=== PATIENT | female | born 1935 | race Caucasian/White ===

== ENCOUNTER 2020-08-02 11:56 | Inpatient (IN) | payer MEDICARE, OTHER, SELFPAY ==
[2020-08-02] VITALS (10 sets, daily range): BP systolic 117–152; BP diastolic 55–78; PULSE 70–88; RESP 17–24; TEMP 36.3–36.9; O2SAT 90–96
--- NOTE | 2020-08-02 | DI.US_ITS ---
APPROVED REPORT EXAM: Comprehensive 2D, Doppler, and color-flow Echocardiogram Patient Location: ER Room/Bed: 1 Intelligence Senior Sergeant: Amelia Ham RDCS (AE) Indications: CHF, SOB, Edema Other Information Study Quality: Adequate. Technically limited study due to inability to position patient exam done sup ine bedside.. Conclusion Left Ventricle : The left ventricle is normal size. Left ventricular systolic function is mild to mod erately decreased. There is normal left ventricular wall thickness. There is global hypokinesis of th e left ventricle. LVEF is 44%. Right Ventricle : Right ventricle is moderately dilated. Right ventricle is mildly hypokinetic. The R VSP is 56.3mmHg. Atria : Left atrium is mildly dilated. Right atrium is severely dilated. Mitral Valve : Moderate mitral annular calcification. No evidence of mitral valve stenosis. Mild mitr al regurgitation. Tricuspid Valve : Tricuspid valve is grossly normal in structure and function. Tricuspid annulus is d ilated. Moderate to severe tricuspid regurgitation. There is no tricuspid valve stenosis. Great Vessels : The aortic root is normal in size. The ascending aorta is mildly dilated. Aortic arch is normal in caliber. Please see remainder of study for further details. Wall motion Left Ventricle The left ventricle is normal size. Left ventricular systolic function is mild to moderately decreased . There is normal left ventricular wall thickness. There is global hypokinesis of the left ventricle. The left ventricular diastolic function is normal. There is no ventricular septal defect visualized. LVEF is 44%. Right Ventricle Right ventricle is moderately dilated. Right ventricle is mildly hypokinetic. The RVSP is 56.3mmHg. Atria Left atrium is mildly dilated. Right atrium is severely dilated. The interatrial septum is intact wit h no evidence for an atrial septal defect. Aortic Valve The aortic valve is normal in structure. Aortic valve is trileaflet. There is no aortic valvular sten osis. Mild aortic regurgitation. Mitral Valve Moderate mitral annular calcification. No evidence of mitral valve stenosis. Mild mitral regurgitatio n. Tricuspid Valve Tricuspid valve is grossly normal in structure and function. Tricuspid annulus is dilated. There is n o tricuspid valve stenosis. Moderate to severe tricuspid regurgitation. Pulmonic Valve The pulmonary valve is normal in structure. There is no pulmonic valvular stenosis. Trace to mild pul crystal regurgitation. Great Vessels The aortic root is normal in size. The ascending aorta is mildly dilated. Aortic arch is normal in ca liber. The IVC collapses <50% with inspiration. Pericardium There is no pericardial effusion. 2D Dimensions IVSD d PLAX 0.86 cm F: 0.6-1.0 LV Vol A2C d MOD 73.9 mL LVPW d PLAX 0.86 cm F: 0.6 - 1.0 LV Vol A4C d MOD 84.3 mL LVID d PLAX 4.61 cm F: 3.8 - 5.2 LA vol/ BSA A2C s A-L 35.8 mL/m2 LVDs 3.60 cm F: 2.2 - 3.5 LA vol/ BSA A4C s A-L 53.0 mL/m2 Ao Root d 3.29 cm F: 2.7 - 3.3 LA Vol/ BSA Biplane s A-L 43.7 mL/m2 RA Area A4C 34.51 cm2 LA Area A4C s MOD 26.67 cm2 RA Vol/ BSA A4C s A-L 77.0 mL/m2 LA Area A2C s MOD 21.82 cm2 Ao Asc Diam d 3.28 cm F: 2.3 - 3.1 LV EF A4C MOD 44.1 % LV EF Teichholz 44.0 % LV EF A2C MOD 43.3 % LVEF ([place]'s) 40.63 % F: 54 - 74 LV EF Biplane MOD 40.6 % LV Volume 61.82 mL F: 46 - 106 SV 32.02 mL LV Volume Index 35.12 mL/m2 F: 29 - 61 SV Index 18.21 mL/m2 LV Vol Biplane MOD 78.8 mL FS 21.65 % M-Mode TAPSE 2.12 cm (M/F) >1.7 LV Diastology MV E' medial 0.105 (>0.07 m/s) E/A Ratio 3.5 LV E/e MED 8.30 (<14) MV E Vmax 0.88 (0.4-1.3 m/s) MV E' lateral 0.111 (>0.1 m/s) MV A Vmax 0.25 (0.4-1.3 m/s) LV E/e LAT 7.85 (<14) MV E/A Ratio 3.18 MV E/E' medial 8.34 MV E/E' lateral 7.88 Aortic Valve LVOT Area 3.19 cm2 AoV Area Vmax 2.34 cm2 LVOT Vmax 0.97 m/s AoV Area/ BSA (Vmax) 1.33 cm2/m2 LVOT Mean Jose Roberto. 0.58 m/s FRANK Mean Jose Roberto. 2.05 cm2 LVOT Peak Grad 3.8 mmHg FRANK Mean Jose Roberto. Index 1.17 cm2/m2 LVOT Mean Grad 1.7 mmHg AR DT 1499 msec LVOT VTI 0.196 m AR PHT 435 msec LVOT Diam s 2.00 cm AoV Vmax 1.33 m/s Velocity Ratio 0.72 AoV Mean Jose Roberto. 0.91 m/s AoV Peak Grad 7.1 mmHg LVOT SV 62.61 mL AoV Mean Grad 3.8 mmHg AoV VTI 0.274 m AoV Area VTI 2.29 cm2 AoV Area/ BSA (VTI) 1.30 cm/m2 Mitral Valve MV DT 133 (160-240 msec) MV PHT 38 msec MV Area PHT 5.72 cm2 MV VTI 0.210 m MV Area VTI 2.98 (4.0-6.0 cm2) Pulmonary Valve PV Vmax 0.83 (0.5-1.5 m/s) RVOT Peak Gr. 1.13 mmHg PV Peak Grad 2.7 mmHg RVOT Mean Gr. 0.45 mmHg PV Mean Grad 1.1 mmHg RVOT VTI 0.103 m PV VTI 0.123 m RVOT Vmax 0.53 m/s Tricuspid Valve TR Peak Grad 48.3 mmHg TR Vmax 3.48 m/s RA Pressure 8.00 mmHg RVSP (TR) 56.3 mmHg
--- NOTE | 2020-08-02 12:00 | RT.EKG_ITS ---
APPROVED REPORT Exam: Resting ECG Reason for Exam: weakness Patient Location: E HR:84 bpm ECG Measurements Heart Rate 84 AXIS DE [id number] P [id number] QRSd 97 QRS 83 QT 388 T 46 QTc 460 Conclusion Atrial flutter with predominant 4:1 AV block...A-rate 333, multiple Ps Borderline ST depression, anterolateral leads...ST <-0.07mV, I aVL V2-V6 afib with no obvious ishcemic findings
--- NOTE | 2020-08-02 12:15 | DI.RAD_ITS ---
Exam(s) XR PORTABLE CHEST AP EXAM: XR PORTABLE CHEST AP CLINICAL HISTORY: weakness, recent pneumonia TECHNIQUE: 2D digital imaging was performed. COMPARISON: No exams were available for comparison FINDINGS: There is a moderate-sized right pleural effusion. There underlying fibrotic changes. There is vascu lar prominence and increased interstitial markings suspicious for CHF. The cardiac silhouette is par tially obscured. IMPRESSION: Right pleural effusion and probable CHF. Pneumonia cannot be excluded. DATA REPOSITORY: RADIATION DOSE DELIVERED:
--- NOTE | 2020-08-02 12:31 | ED.GENADUL_ITS ---
Discharge Plan Disposition Patient Disposition: [facility] INPATIENT Condition: Stable Discharge Details Chief Complaint: GenMedical Clinical Impression: Hypoxia, Pulmonary edema, Pneumonia Primary Care Provider: Unknown,Unknown ED Provider: Juan Milligan [place] Meds and New Rx's Prescriptions: No Action doxycycline hyclate [Doxy-Caps] 100 mg Capsule 100 mg PO BID RF: 0 metoprolol succinate 50 mg Tablet Extended Release 24 Hr 50 mg PO DAILY RF: 0 Metamucil Packet 1 packet PO BID RF: 0 aspirin [Aspir-Low] 81 mg Tablet,Delayed Release (Dr/Ec) 81 mg PO DAILY RF: 0 acetaminophen 500 mg Tablet 500 mg PO TID PRN PRNRF: 0 diltiazem HCl [DILT-CD] 120 mg Capsule,Extended Release 24hr 120 mg PO DAILY RF: 0 furosemide 20 mg Tablet 20 mg PO DAILY RF: 0 levothyroxine 112 mcg Tablet 112 mcg PO DAILY RF: 0 oxycodone 5 mg Tablet 5 mg PO BID PRNRF: 0 lactulose 10 gram/15 mL Solution 10 g PO BID PRN PRNRF: 0 Eliquis 2.5 mg Tablet 2.5 mg PO BID RF: 0 Medical Decision Making 84 yo female with hx of afib on eliquis, otherwise unclear prior pmhx though denies any history of OK, comes in with family with worsening general fatigue and dyspnea. She apparently had a fall last and lives with her daughter in the [place] area and went to their hospital. She was admitted and discharged Saturday and had a diagnosis of pneumonia on her discharge paperwork which the daughter states she was not made aware of and upset her. She has had gradually worsening dyspnea and general fatigue so her family brought her here for an evaluation. No fevers on history and no chest pain. She is noted to be hypoxic to 90% on room air with tachypnea and decreased breath sounds at the bases. She and her daughter confirm she is dnr/dni. Bedside u/s does show b lines in both lungs bilaterally so suspect partially this is due to chf, will administer lasix, and evaluate for ischemia with troponin and anemia. She is on eliquis and no evidence of dvt on exam so doubt PE. Will try to get records from [place] as well. records obtained from [place] and they note she has afib on eliquis, chf, tricupsid regurgitation, prior tia, polycyhtmeia, DMt2, htn, hypothyroidism, depression and was seen in their ED on day of admission for a mechanicall fall while getting dressed resulting in t12 and L1 compression fractures. She was treated as well for a pneumonia on her xray and discharged on doxycycline. Her xray here shows right pleural effusion and chf and possible pneumonia, her wbc here is 12 and on their labs was normal. Will obtain blood cultures and likely start iv antibiotics patient has sodium of 127 and was 130 at [facility], bilirubin mildly elevated but was over 2 while at [facility] and had unremarkable abdomen ultrasound and has no pain on exam and also had negative hepatitis panel. She is sleeping but awakens to voice and after having tylenol and being placed on o2 states she feels better. Will admit to the hospitalist for chf with possible worsening pneumonia in patient already on doxycycline and requiring oxygen. PAtient and daughter in agreement Differential Diagnosis Differential Diagnosis: pneumonia, chf, uti Imaging Data Radiologic Study: Attestation: I personally reviewed and interpreted this imaging study as follows: Imaging: X-Ray Radiologist's impression: IMPRESSION: Right pleural effusion and probable CHF.? Pneumonia cannot be excluded. Lab Data Lab results reviewed: Yes I reviewed the patient's lab results. ECG Data Attestation: I personally reviewed and interpreted this ECG (s) as follows: Prior ECG tracings: not available for review Interpretation: afib rate of 84, qtc [address] t wave ischemic findings though has some motion artifact HPI General Mode of arrival: wheelchair . Date/Time Provider Initiated Documentation: 08/02/20 11:57 . Limitations to Documentation: no limitations . Information obtained by: patient . History of Present Illness 84 year old F presents to the emergency department with the chief complaint of general weakness, described as moderate, Patient reports no radiation. Patient started experiencing this day(s) (3) and it has been constant. No relieving factors improve symptom(s), No exacerbating factors reported . Related Data Home Medications Medication Instructions Recorded Confirmed acetaminophen 500 mg PO TID PRN PRN 08/02/20 08/02/20 apixaban [Eliquis] 2.5 mg PO BID 08/02/20 08/02/20 aspirin [Aspir-Low] 81 mg PO DAILY 08/02/20 08/02/20 diltiazem HCl [DILT-CD] 120 mg PO DAILY 08/02/20 08/02/20 doxycycline hyclate [Doxy-Caps] 100 mg PO BID 08/02/20 08/02/20 furosemide 20 mg PO DAILY 08/02/20 08/02/20 lactulose 10 g PO BID PRN PRN 08/02/20 08/02/20 levothyroxine 112 mcg PO DAILY 08/02/20 08/02/20 metoprolol succinate 50 mg PO DAILY 08/02/20 08/02/20 oxycodone 5 mg PO BID PRN 08/02/20 08/02/20 psyllium [Metamucil] 1 packet PO BID 08/02/20 08/02/20 Allergies Allergy/AdvReac Type Severity Reaction Status Date / Time No Known Allergies Allergy Unverified 08/02/20 12:13 General Stated Complaint: GenMedical HAZEL: 2 Review of Systems All systems reviewed & are unremarkable except as noted in HPI and below Constitutional Constitutional: Denies chills and Denies fever(s) Cardiovascular Cardiovascular: Denies chest pain Respiratory Respiratory: Denies cough Gastrointestinal Gastrointestinal: Denies abdominal pain, Denies nausea and Denies vomiting Musculoskeletal Musculoskeletal: Denies joint swelling PFSH Social History Smoking/Tobacco Use Status: Former Tobacco Use Smoking risk assessment performed?: Yes Alcohol Intake: never Drug use: Never Exam Const General: no acute distress Orientation: alert [facility] Head: normal to inspection Ears: external ears normal General nose exam: external nose normal Mouth: moist mucous membranes Eyes General: appearance normal, both eyes and all related structures Neck Neck: normal visual inspection Resp Effort & Inspection: no grunting Cardio Rate: regular rate Skin General skin exam: no rashes or lesions noted Neuro General: patient alert and patient oriented x3 Extrem General: normal to inspection Psych Mental Status: mental status grossly normal Course Vital Signs Vital signs: Vital Signs Temperature 36.9 C 08/02/20 12:08 Pulse 85 08/02/20 12:08 Respiratory Rate 24 08/02/20 12:08 Blood Pressure 152/78 H 08/02/20 12:08 Pulse Oximetry 90 L 08/02/20 12:08 Temperature 36.9 C 08/02/20 12:08 Temperature Source Oral 08/02/20 12:08 Pulse 85 08/02/20 12:08 Respiratory Rate 17 08/02/20 12:21 Respiratory Effort 08/02/20 12:21 Blood Pressure 152/78 H 08/02/20 12:08 Blood Pressure Position Supine 08/02/20 12:08 Pulse Oximetry 94 08/02/20 12:23 Oxygen Delivery Method Nasal Cannula 08/02/20 12:23 Oxygen Flow Rate 2 08/02/20 12:23
[2020-08-02 12:51] LABS: BE (Venous) -3 mmol/L (-2-3); HCO3 (Venous) 23 mmol/L (23-28); O2 Sat (Venous) 81 %; TCO2 (Venous) 20 mmol/L (24-29); pCO2 (Venous) 41 mmHg (41-51); pH (Venous) 7.35 (7.31-7.41); pO2 (Venous) 29 mmHg
[2020-08-02 12:55] LABS: Abs Immature Grans 0.11 10^3/uL (0.0-0.06); Absolute Basophil Count 0.05 10^3/uL (0.0-0.2); Absolute Eosinophil Count 0.01 10^3/uL (0.0-0.7); Absolute Lymphocyte Count 0.62 10^3/uL (1.2-3.4); Absolute Monocyte Count 0.59 10^3/uL (0.1-0.8); Absolute Neutrophil Count 11.07 10^3/uL (1.2-6.7); Basophils % 0.4; Eosinophils % 0.1; HCT 50.4 % (36.0-46.0); HGB 17.1 g/dL (11.2-15.7); Immature Grans % 0.9; MCH 31.4 pg (27.0-33.0); MCHC 33.9 % (32.0-36.0); MCV 92.5 fL (80-95); MPV 10.2 fL (8.0-11.0); Monocytes % 4.7; Neutrophils % 88.9; Nucleated RBC 0 %; Platelet Count 158 10^3/uL (130-400); RBC 5.45 10^6/uL (3.93-5.22); RDW 15.8 % (11.7-14.6); RDW-SD 52.5 fL; WBC 12.45 10^3/uL (4.4-10.8)
[2020-08-02 12:56] LABS: Bilirubin Small (Negative); Blood Negative (Negative); Clarity Sl Cloudy (Clear); Glucose Negative (Negative); Ketones 15 mg/dL (Negative); Leukocyte Esterase Negative (Negative); Nitrite Negative (Negative); Specific Gravity 1.025 (1.005-1.025); Urobilinogen 0.2 EU/dL (Up TO 0.2)
[2020-08-02] MEDS: Furosemide 40 MG/4 ML VIAL IVP (12:58)
[2020-08-02] MEDS: Acetaminophen 500 MG TAB 1000 MG PO (12:58)
[2020-08-02 13:07] LABS: INR 1.3 (0.9-1.1); PTT Activated 27.4 sec (21.0-27.5); Prothrombin Time 13.4 sec (9.3-11.0)
[2020-08-02 13:08] LABS: Bacteria Few HPF (Negative); Crystals Negative HPF (Negative); Epithelial Cells Rare HPF (Negative); Mucus Moderate (Negative); Other Cells Few Renal (Negative)
[2020-08-02 13:10] LABS: C & S Indicated? Yes; Casts 3-5 Coarse Granular LPF (Negative)
[2020-08-02 13:13] LABS: ALT 33 U/L (14-59); AST 20 U/L (15-37); Albumin 2.7 g/dL (3.4-5.0); Alkaline Phosphatase 182 U/L (46-116); Anion Gap 11.1 mmol/L (3-11); BUN 32 mg/dL (7-18); Bilirubin, Direct 0.5 mg/dL (0.0-0.2); Bilirubin, Total 1.4 mg/dL (0.2-1.0); CO2 22.9 mmol/L (21.0-32.0); CREATININE 0.8 mg/dL (0.55-1.02); Calcium 8.9 mg/dL (8.5-10.1); Chloride 93 mmol/L (98-107); Glucose 216 mg/dL (74-106); Magnesium 1.5 mg/dL (1.8-2.4); NT-proBNP 10176 pg/mL (<300); Potassium 5.4 mmol/L (3.5-5.1); Sodium 127 mmol/L (136-145); Total Protein 7.4 g/dL (6.4-8.2)
[2020-08-02 13:20] LABS: Troponin I < 0.05 ng/mL (<0.06)
[2020-08-02 13:23] LABS: Source Nasal/Nares
--- NOTE | 2020-08-02 13:48 | NUR.NOTE ---
Nursing Note: DAUGHTER [phone]
--- NOTE | 2020-08-02 13:48 | W.PM.HP.N ---
Date of service: 08/02/20 Time of Service: 13:48 Assessment and Plan Assessment and plan (1) Pulmonary edema: Status: Acute Assessment and plan: admit to med/surg monitor I&O and daily weights closely continue lasix daily echo pending. oxygen to keep sats above 92 trend troponin last echo September 29, 2018 at [facility]: EF 50% with anteroseptal wall base to mid severely hypokinetic, inferoseptal wall base to mid is severely hypokinetic , mildly dilated RV, RV function is preserved with apical hypokinesis. The interventricular septum in flattened consistent with RV pressure overload. both atria moderately dilated, NO , mild to moderate AI, moderate TR evidence of moderate pulmonary HTN PA pressures 47.92, pericardium normal, left pleural effusion present. (2) Diabetes mellitus type 2 in obese: Status: Acute Assessment and plan: diabetic diet sliding scale coverage as needed. HA1C 6.1 in Oct 2019 home med list: glipizide 10 mg po daily which was placed on hold on discharge d/t elevated tbili. (3) Pneumonia: Status: Acute Assessment and plan: recently treated for and discharged on doxycycline. blood cultures pending received zosyn in the ED will add procalcitonin (4) Atrial fibrillation: Status: Chronic Assessment and plan: rate controlled on cardizem anticoagulated on apixaban continue home medications (5) Compression fracture: Status: Acute Assessment and plan: continue pain management, scheduled apap, lidocaine patch, prn oxycodone PT/OT consult LS spine xrary from [facility]: stable grade 1 superior endplate compression of L1, grade 2 biconcave compression deformity of T12 in indeterminate age, progressive spondylosis of L5-S1. mild broad based lumbar dextrorotocurature, stable. (6) Hypothyroidism: Status: Chronic Assessment and plan: continue synthyroid. TSH on 07/22/2020 2.89 (7) Elevated LFTs: Status: Acute Assessment and plan: work up at [facility] included: hepatitis panel: negative Tbil 1.7, dbil 0.8, alp 148, alt 33, ast 26 ggt 143, tp 6 alb 3.0 INR 1.3 ultrasound of RUQ: liver appears hypoechoic. no focal intrahepatic mass or intrahepatic bilary dilatation noted. The appearance could be on basis of hepatitis. common duct measure 5 mm, WNL, gallbladder free of stone or wall thickening. probably mild sludge present, seen on previous CT scan 2018, pancreas is satisfactorily imaged and appears unremarkable. right kidney grossed free of hydro, no free fluid noted right UQ. they stopped her asa, glypizide and possible connection to bactrim? (8) DVT prophylaxis: Status: Acute Assessment and plan: fully anticoagulated on apixaban (9) Discharge planning issues: Status: Acute Assessment and plan: case management following anticipate swing level discharge discussed with Dr Flowers History of Present Illness History of Present Illness Chief Complaint: shortness of breath Narrative: discharged over the weekend from [facility], had fallen at home and suffered compression fractures, also found to have a pneumonia, discharged home on doxycycline. has had increased SOB and decreased abililty to manage at home accordingly. daughter brought her here for evaluation. work up in the ED concerning for CHF with BNP over 10k, b-lines on PoCUS exam. she received IV lasix and bed request to admit to med/surg for further management. Review of Systems All systems reviewed & are unremarkable except as noted in HPI and below Cardiovascular Cardiovascular: Reports dyspnea and Reports dyspnea on exertion Respiratory Respiratory: Reports dyspnea and Reports dyspnea on exertion PFSH Social History Smoking/Tobacco Use Status: Former Tobacco Use Smoking risk assessment performed?: Yes Alcohol Intake: never Drug use: Never Meds Allergies and Home Medications Allergies Allergy/AdvReac Type Severity Reaction Status Date / Time No Known Allergies Allergy Unverified 08/02/20 12:13 Home Medications Medication Instructions Recorded Confirmed Type acetaminophen 500 mg PO TID PRN PRN 08/02/20 08/02/20 History apixaban [Eliquis] 2.5 mg PO BID 08/02/20 08/02/20 History aspirin [Aspir-Low] 81 mg PO DAILY 08/02/20 08/02/20 History diltiazem HCl [DILT-CD] 120 mg PO DAILY 08/02/20 08/02/20 History doxycycline hyclate [Doxy-Caps] 100 mg PO BID 08/02/20 08/02/20 History furosemide 20 mg PO DAILY 08/02/20 08/02/20 History lactulose 10 g PO BID PRN PRN 08/02/20 08/02/20 History levothyroxine 112 mcg PO DAILY 08/02/20 08/02/20 History metoprolol succinate 50 mg PO DAILY 08/02/20 08/02/20 History oxycodone 5 mg PO BID PRN 08/02/20 08/02/20 History psyllium [Metamucil] 1 packet PO BID 08/02/20 08/02/20 History Exam Const General: no acute distress, frail appearing and ill appearing acutely Nutritional Appearance: average body habitus Orientation: alert, awake and oriented x3 HENMT Head: normal to inspection Ears: external ears normal General nose exam: external nose normal Mouth: moist mucous membranes Eyes General: appearance normal, both eyes and all related structures Neck Neck: normal visual inspection Resp Effort & Inspection: no grunting Cardio Rate: regular rate Skin General skin exam: no rashes or lesions noted Neuro General: patient alert and patient oriented x3 Extrem General: normal to inspection Psych Mental Status: mental status grossly normal Results Labs Result diagrams: 08/02/20 12:06 08/02/20 12:43 Labs: Laboratory Results - last 24 hr 08/02/20 08/02/20 08/02/20 12:06 12:06 12:06 WBC 12.45 H RBC 5.45 H Hgb 17.1 H Hct 50.4 H MCV 92.5 MCH 31.4 MCHC 33.9 RDW 15.8 H Plt Count 158 MPV 10.2 Immature Gran % 0.9 Neutrophils % 88.9 Lymphocytes % 5.0 Monocytes % 4.7 Eosinophils % 0.1 Basophils % 0.4 Nucleated RBC % 0 Absolute Neutrophils 11.07 H Absolute Lymphocytes 0.62 L Absolute Monocytes 0.59 Absolute Eosinophils 0.01 Absolute Basophils 0.05 PT 13.4 H INR 1.3 H APTT 27.4 VBG pH VBG pCO2 VBG pO2 VBG HCO3 VBG Total CO2 VBG O2 Saturation VBG Base Excess Sodium Potassium Chloride Carbon Dioxide Anion Gap BUN Creatinine Estimated GFR/1.73 m2 Glucose Calcium Magnesium Cancelled Total Bilirubin Conjugated Bilirubin AST ALT Alkaline Phosphatase Troponin I NT-Pro-B Natriuret Pep Total Protein Albumin Urine Color Urine Clarity Urine pH Ur Specific [place] Urine Protein Urine Ketones Urine Blood Urine Nitrite Urine Bilirubin Urine Urobilinogen Ur Leukocyte Esterase Urine RBC Urine WBC Ur Epithelial Cells Urine Crystals Urine Bacteria Urine Casts Urine Mucus Urine Other Ur Culture Indicated? Urine Glucose COVID-19 Source 08/02/20 08/02/20 08/02/20 12:38 12:43 12:43 WBC RBC Hgb Hct MCV MCH MCHC RDW Plt Count MPV Immature Gran % Neutrophils % Lymphocytes % Monocytes % Eosinophils % Basophils % Nucleated RBC % Absolute Neutrophils Absolute Lymphocytes Absolute Monocytes Absolute Eosinophils Absolute Basophils PT INR APTT VBG pH 7.35 VBG pCO2 41 VBG pO2 29 VBG HCO3 23 VBG Total CO2 20 L VBG O2 Saturation 81 VBG Base Excess -3 L Sodium 127 L Potassium 5.4 H Chloride 93 L Carbon Dioxide 22.9 Anion Gap 11.1 H BUN 32 H Creatinine 0.8 Estimated GFR/1.73 m2 >= 60.00 Glucose 216 H Calcium 8.9 Magnesium 1.5 L Total Bilirubin 1.4 H Conjugated Bilirubin 0.5 H AST 20 ALT 33 Alkaline Phosphatase 182 H Troponin I Cancelled < 0.05 NT-Pro-B Natriuret Pep Cancelled 09508 H Total Protein 7.4 Albumin 2.7 L Urine Color Urine Clarity Urine pH Ur Specific [place] Urine Protein Urine Ketones Urine Blood Urine Nitrite Urine Bilirubin Urine Urobilinogen Ur Leukocyte Esterase Urine RBC Urine WBC Ur Epithelial Cells Urine Crystals Urine Bacteria Urine Casts Urine Mucus Urine Other Ur Culture Indicated? Urine Glucose COVID-19 Source 08/02/20 08/02/20 12:45 13:14 WBC RBC Hgb Hct MCV MCH MCHC RDW Plt Count MPV Immature Gran % Neutrophils % Lymphocytes % Monocytes % Eosinophils % Basophils % Nucleated RBC % Absolute Neutrophils Absolute Lymphocytes Absolute Monocytes Absolute Eosinophils Absolute Basophils PT INR APTT VBG pH VBG pCO2 VBG pO2 VBG HCO3 VBG Total CO2 VBG O2 Saturation VBG Base Excess Sodium Potassium Chloride Carbon Dioxide Anion Gap BUN Creatinine Estimated GFR/1.73 m2 Glucose Calcium Magnesium Total Bilirubin Conjugated Bilirubin AST ALT Alkaline Phosphatase Troponin I NT-Pro-B Natriuret Pep Total Protein Albumin Urine Color Dark yellow Urine Clarity Sl cloudy Urine pH 6.0 Ur Specific [place] 1.025 Urine Protein 100 H Urine Ketones 15 H Urine Blood Negative Urine Nitrite Negative Urine Bilirubin Small H Urine Urobilinogen 0.2 Ur Leukocyte Esterase Negative Urine RBC 3-5 H Urine WBC 3-5 Ur Epithelial Cells Rare Urine Crystals Negative Urine Bacteria Few Urine Casts 3-5 coarse granular Urine Mucus Moderate Urine Other Few renal Ur Culture Indicated? Yes Urine Glucose Negative COVID-19 Source Nasal/nares Last Vital Signs Temp 36.9 C 08/02/20 12:08 Pulse 84 08/02/20 13:33 Resp 21 08/02/20 13:33 BP 142/74 H 08/02/20 13:33 Pulse Ox 96 08/02/20 13:33
[2020-08-02] MEDS: MAGNESIUM SULFATE 2 GM/50 ML BAG IVPB (13:49)
[2020-08-02] MEDS: PIPERACILLIN/TAZO 4.5 GM in Normal Saline 100 ML IVPB (14:03)
[2020-08-02 14:44] LABS: Procalcitonin 0.4 ng/mL
[2020-08-02 15:03] LABS: COVID-19 PCR Negative (Negative)
[2020-08-02] MEDS: Furosemide 20 MG/2 ML VIAL IVP (16:23)
[2020-08-02] MEDS: Normal Saline Flush 10 ML SYR IVP (16:24)
[2020-08-02] MEDS: Ketorolac 15 MG/ML VIAL IVP (16:24)
[2020-08-02 16:38] LABS: Troponin I < 0.05 ng/mL (<0.06)
--- NOTE | 2020-08-02 17:13 | PT.INTREAT ---
Date of service: 08/02/20 Time of Service: 17:13 PT Notes Visit Reasons: Congestive heart failure Attempted PT evaluation twice but patient adamantly refused stating that she has been in a lot of pain and she only would like to continue to rest/sleep. Feels very relaxed and sleepy. Nurse Sherice states that patient has received Toradol earlier this afternoon uponf arrival to the unit. Will plan on approaching patient again tomorrow morning, as ordered. Thank you for the opportunity to participate in the care of this patient. Fabby Neff PT, DPT, CLT [facility] [place], [place]
[2020-08-02] MEDS: Acetaminophen 500 MG TAB PO (19:57)
[2020-08-02] MEDS: Apixaban 2.5 MG TAB PO (19:59)
[2020-08-02] MEDS: Doxycycline Hyclate 100 MG CAP PO (19:59)
[2020-08-02] MEDS: Psyllium PKT 1 EACH PO (19:59)
[2020-08-02] MEDS: Lidocaine 5% Patch 1 PATCH TP (20:01)
[2020-08-02 21:23] LABS: Troponin I < 0.05 ng/mL (<0.06)
[2020-08-03] MEDS: Levothyroxine 112 MCG TAB PO (05:19)
[2020-08-03] MEDS: Normal Saline Flush 10 ML SYR IVP ×5 (06:52→16:15)
[2020-08-03] MEDS: Ketorolac 15 MG/ML VIAL IVP ×3 (06:52→20:59)
[2020-08-03 07:08] LABS: Abs Immature Grans 0.11 10^3/uL (0.0-0.06); Absolute Basophil Count 0.05 10^3/uL (0.0-0.2); Absolute Eosinophil Count 0.05 10^3/uL (0.0-0.7); Absolute Lymphocyte Count 0.62 10^3/uL (1.2-3.4); Absolute Monocyte Count 0.62 10^3/uL (0.1-0.8); Absolute Neutrophil Count 7.95 10^3/uL (1.2-6.7); Basophils % 0.5; Eosinophils % 0.5; HCT 48.7 % (36.0-46.0); HGB 16.7 g/dL (11.2-15.7); Immature Grans % 1.2; Lymphocytes % 6.6; MCH 31.3 pg (27.0-33.0); MCHC 34.3 % (32.0-36.0); MCV 91.4 fL (80-95); Monocytes % 6.6; Neutrophils % 84.6; Nucleated RBC 0 %; Platelet Count 136 10^3/uL (130-400); RBC 5.33 10^6/uL (3.93-5.22); RDW 15.5 % (11.7-14.6); RDW-SD 50.9 fL
[2020-08-03 07:23] LABS: Anion Gap 7.9 mmol/L (3-11); BUN 32 mg/dL (7-18); CO2 26.1 mmol/L (21.0-32.0); CREATININE 0.8 mg/dL (0.55-1.02); Chloride 95 mmol/L (98-107); Glucose 152 mg/dL (74-106); Potassium 3.8 mmol/L (3.5-5.1); Sodium 129 mmol/L (136-145)
[2020-08-03 07:28] LABS: Troponin I < 0.05 ng/mL (<0.06)
[2020-08-03 07:36] VITALS: BP 132/79; PULSE 92; RESP 19; TEMP 36.6; O2SAT 95
[2020-08-03] MEDS: Apixaban 2.5 MG TAB PO ×2 (08:03→20:29)
[2020-08-03] MEDS: Aspirin E.C. 81 MG TABEC PO (08:03)
[2020-08-03] MEDS: Lidocaine Patch Removal 1 EACH TD (08:03)
[2020-08-03] MEDS: Acetaminophen 500 MG TAB PO ×3 (08:03→20:28)
[2020-08-03] MEDS: Doxycycline Hyclate 100 MG CAP PO ×2 (08:04→20:28)
[2020-08-03] MEDS: Furosemide 20 MG TAB PO (08:04)
[2020-08-03] MEDS: Insulin Aspart 300 UNITS/3 ML PEN SC (08:04)
[2020-08-03] MEDS: Metoprolol CR 50 MG TABCR PO (08:04)
[2020-08-03] MEDS: dilTIAZem CD 120 MG CAPCR PO (08:04)
[2020-08-03] MEDS: Lactulose 20 GM/30 ML CUP 10 GM PO (08:32)
[2020-08-03] MEDS: Docusate Sodium 100 MG CAP PO ×2 (09:57→20:28)
[2020-08-03] MEDS: Polyethylene Glycol 3350 17 GM PACKET PO (09:57)
--- NOTE | 2020-08-03 10:25 | IN_ITS ---
PT Notes Visit Reasons: Congestive heart failure Physical Therapy Inpatient Initial Evaluation Date: 08/03/2020 Referring Doctor: Shante Mojica NP PT Orders: PT CONSULT: Eval/treat. Precautions: Fall. Standard. Activity as tolerated. Back brace on when out of bed, may put brace in supine or seated. Patient Profile/Admitting Diagnosis: Carlos is an 84-year-old female who presented to the ED on 08/02/2020 due to worsening general fatigue and dyspnea with a fall last . She is diagnosed with pulmonary edema, diabetes mellitus, pneumonia, atrial fibrillation, elevated LFTs, and stable grade 1 superior endplate L1 compression fracture and grade 2 biconcave compression deformity of T12 as well as progressive spondylosis of L5-S1. PMHX: Hypothyroidism Diabetes mellitus type 2 Atrial fibrillation Social History/Home Situation: Lives with a daughter in a private home with 4 steps to enter with rails on B sides. She was independent with meal preparation, all mobility and self-care tasks prior to hospital admission. Daughter drove her to all her medical appointments. Equipment Owned/DME: FWW, Subjective: Patient finally agreed to putting the back brace on while in bed as she was too afraid to get out of bed. After extensive reassurance that she will be okay and will not fall, she okayed transferring from bedside to chair with assist of PT and ERIKA Clark as well as with stand by assist of ERIKA Martinez and student ERIKA for safety. Patient appeared to be significantly fearful of falling and needed much encouragement to participate in mobility assessment. Objective: General Observation: IV in R UE. Avina catheter in place. Abdominal area appears full and rounded. Mental Status: Alert and oriented as to person, place, time, and purpose. Able to pay attention, focus, and respond appropriately. Fearful of falling. Pain: At least 8/10 back pain ROM: Right Upper Extremity: Shoulder Flexion WFL. Shoulder abduction WFL. Shoulder ER/IR WFL. Elbow flexion WFL. Forearm pronation/supination WFL. Wrist flexion WFL. Opening and closing of hand WFL. Left Upper Extremity: Shoulder Flexion WFL. Shoulder abduction WFL. Shoulder ER/IR WFL. Elbow flexion WFL. Forearm pronation/supination WFL. Wrist flexion WFL. Opening and closing of hand WFL. Right Lower Extremity: Hip flexion allows up to about 100 degrees before onset of pain. Hip abduction WFL. Hip ER/IR WFL. Knee flexion 20 degrees to 90 degrees. Knee extension -90 degrees. Ankle dorsiflexion/eversion to neutral only. Ankle plantarflexion/inversion WFL. Left Lower Extremity: Hip flexion allows up to about 100 degrees before onset of pain. Hip abduction WFL. Hip ER/IR WFL. Knee flexion 20 degrees to 90 degrees. Knee extension -90 degrees. Ankle dorsiflexion/eversion to neutral only. Ankle plantarflexion/inversion WFL. Strength: Right Upper Extremity: Shoulder flexors 3+/5. Shoulder abductors 3+/5. Shoulder ER 3+/5. Shoulder IR 3+/5. Forearm pronators 3+/5. Forearm supinators 3+/5. Elbow flexors 3+/5. Elbow extensors 3+/5. Flattening Machine Operator strong. Left Upper Extremity: Shoulder flexors 3+/5. Shoulder abductors 3+/5. Shoulder ER 3+/5. Shoulder IR 3+/5. Forearm pronators 3+/5. Forearm supinators 3+/5. Elbow flexors 3+/5. Elbow extensors 3+/5. Flattening Machine Operator strong. Right Lower Extremity: Hip flexors 3-/5. Hip abductors 4-/5. Hip external rotators 4-/5. Hip internal rotators 4-/5. Knee flexors 3-/5. Knee extensors 3- /5. Ankle dorsiflexors/evertors 5/5. Ankle plantarflexors/invertors 5/5. Left Lower Extremity: Hip flexors 5/5. Hip abductors 5/5. Hip external rotators 5/5. HIp internal rotators 5/5. Knee flexors 5/5. Knee extensors 5/5. Ankle dorsiflexors/evertors 5/5. Ankle plantarflexors/invertors 5/5. Bed Mobility/Transfers: Rolling moderate assist of 2 Supine to sit moderate assist of 2 with HOB at 30 degrees Sit to supine moderate assist of 2 Sit to stand minimal assist of 2 with standby assist of 2 LNAs for safety and environmental set up Stand to sit minimal assist of 2 with standby assist of 2 LNAs for safety and environmental set up Bed to chair minimal assist of 2 with standby assist of 2 LNAs for safety and environmental set up Chair to bed minimal assist of 2 with standby assist of 2 LNAs for safety and environmental set up Gait: Distance of 10 feet requiring minimal assist of 2. Alice slow. Step height decreased. Step length decreased. Thoracic kyphosis. Unstable posteriorly. Moderate to maximal verbal cueing for safe technique. Balance: Static Sitting: Good Dynamic Sitting: Fair Static Standing: Poor Dynamic Standing: Poor Special Tests: Mobility Limitations Standardized Measure [facility] AM-PAC 6 clicks Basic Mobility Inpatient Short Form: Raw Score: 12 CMS Score: 69% deficit Informed Consent/Education: Patient was instructed in purpose of PT consult and plan of care. Agreeable to proceed with established PT POC to achieve personal goals. Assessment: Chanceyn demonstrates difficulty with walking, generalized weakness, significant fearfulness of falling, decline in ADL performance, and significant pain level that limits mobility ADL performance at this time. A TLSO was trialled during this session and patient reported good relief with it on. Patient will benefit from shelter facility placement for continued skilled physical therapy services in order to progress mobility level, strength, and balance in preparation for a safe discharge to home. Patient presents with clinical signs and symptoms consistent with current/ad mitting diagnoses that have resulted to mobility limitations, gait instability, generalized weakness, and impairment of motor control as demonstrated by the following impairment level findings: 1. Decreased strength to B LE major muscle groups 2. Impaired sitting/standing balance 3. Impaired activity tolerance 4. Limitation of joint range of motion in B hips Impairments are contributing to the following functional limitations: 1. Dependent bed mobility skills 2. Increased dependence with transfers 3. Inability to safely ambulate without assistive device and physical assistance 4. Increase completion time for mobility ADL performance 5. Increased fall risk 6. Inability to negotiate steps alone safely 7. Inability to return to prior living environment at this time Patient is assessed as a 12608 moderate complexity based on the following: History: 84-year-old female with past medical history as indicated above Examination: Demonstrable impairment in strength, balance, and mobility level with underlying impairments and functional limitations as exhibited above as well as deficit score of 69% utilizing the [facility] Mobility Inpatient Short Form Presentation: Evolving Decision Makin moderate complexity Goals: Goals X1 week 1. Supine-Sit independent 2. Sit-Supine independent 3. Sit-Stand independent with a TLSO on and FWW 4. Stand-Sit independent with a TLSO on and FWW 5. Bed-Chair independent with a TLSO on and FWW 6. Chair-Bed independent with a TLSO on and FWW 7. Independent gait on level surface with use of front wheeled walker for at le ast 100 feet without report of pain nor dyspnea 8. Independent stair negotiation while holding onto B rails for at least 4 steps without report of pain nor dyspnea 9. Independent with home exercise program 10. Good static and dynamic standing balance/tolerance Plan of Care/Treatment Plan: 1-2x/day, 7 days/week x 1 week. Plan of care has been reviewed with the OTR OWNER OPERATOR providing the service under Physical Therapy direction. Initiate Physical Therapy intervention for pain management as needed, strengthening, bed mobility, transfers, gait, stairs, balance training, and use of assistive device. DISCHARGE RECOMMENDATIONS: Patient will benefit from shelter facility placement for continued skilled physical therapy services in order to progress mobility level, strength, and balance in preparation for a safe discharge to home. TREATMENT CODE/TIME: 69431 x 20 minutes, 23268 x 10 minutes beginning at 10:25 AM. Thank you for the opportunity to participate in the care of this patient. Fabby Neff PT, DPT, CLT [facility] [place], [place]
[2020-08-03] MEDS: MAGNESIUM SULFATE 1 GM/100 ML BAG IVPB (11:38)
--- NOTE | 2020-08-03 11:48 | W.PM.PROGNOT ---
Date of Service Date of service: 08/03/20 Time of Service: 11:48 Assessment and Plan Assessment and plan (1) Pulmonary edema: Status: Acute Assessment and plan: admit to med/surg monitor I&O and daily weights closely continue lasix daily echo Conclusion Left Ventricle : The left ventricle is normal size. Left ventricular systolic function is mild to moderately decreased. There is normal left ventricular wall thickness. There is global hypokinesis of the left ventricle. LVEF is 44%. Right Ventricle : Right ventricle is moderately dilated. Right ventricle is mildly hypokinetic. The RVSP is 56.3mmHg. Atria : Left atrium is mildly dilated. Right atrium is severely dilated. Mitral Valve : Moderate mitral annular calcification. No evidence of mitral valve stenosis. Mild mitral regurgitation. Tricuspid Valve : Tricuspid valve is grossly normal in structure and function. Tricuspid annulus is dilated. Moderate to severe tricuspid regurgitation. There is no tricuspid valve stenosis. Great Vessels : The aortic root is normal in size. The ascending aorta is mildly dilated. Aortic arch is normal in caliber. . oxygen to keep sats above 92 troponin remain negative last echo September 29, 2018 at [facility]: EF 50% with anteroseptal wall base to mid severely hypokinetic, inferoseptal wall base to mid is severely hypokinetic , mildly dilated RV, RV function is preserved with apical hypokinesis. The interventricular septum in flattened consistent with RV pressure overload. both atria moderately dilated, NO , mild to moderate AI, moderate TR evidence of moderate pulmonary HTN PA pressures 47.92, pericardium normal, left pleural effusion present. (2) Diabetes mellitus type 2 in obese: Status: Acute Assessment and plan: diabetic diet sliding scale coverage as needed. HA1C 6.1 in Oct 2019 home med list: glipizide 10 mg po daily which was placed on hold on discharge d/t elevated tbili. (3) Pneumonia: Status: Acute Assessment and plan: recently treated for and discharged on doxycycline day 4/5. blood cultures pending received zosyn in the ED, will not continue as respiratory status stable. will add procalcitonin (4) Atrial fibrillation: Status: Chronic Assessment and plan: rate controlled on cardizem anticoagulated on apixaban continue home medications (5) Compression fracture: Status: Acute Assessment and plan: continue pain management, scheduled apap, lidocaine patch, prn oxycodone PT/OT consult LS spine xrary from [facility]: stable grade 1 superior endplate compression of L1, grade 2 biconcave compression deformity of T12 in indeterminate age, progressive spondylosis of L5-S1. mild broad based lumbar dextrorotocurature, stable. (6) Hypothyroidism: Status: Chronic Assessment and plan: continue synthyroid. TSH on 07/22/2020 2.89 (7) Elevated LFTs: Status: Acute Assessment and plan: work up at [facility] included: hepatitis panel: negative Tbil 1.7, dbil 0.8, alp 148, alt 33, ast 26 ggt 143, tp 6 alb 3.0 INR 1.3 ultrasound of RUQ: liver appears hypoechoic. no focal intrahepatic mass or intrahepatic bilary dilatation noted. The appearance could be on basis of hepatitis. common duct measure 5 mm, WNL, gallbladder free of stone or wall thickening. probably mild sludge present, seen on previous CT scan 2018, pancreas is satisfactorily imaged and appears unremarkable. right kidney grossed free of hydro, no free fluid noted right UQ. they stopped her asa, glypizide and possible connection to bactrim? (8) DVT prophylaxis: Status: Acute Assessment and plan: fully anticoagulated on apixaban (9) Discharge planning issues: Status: Acute Assessment and plan: case management following anticipate swing level discharge vs home with home health services. discussed with Dr Flowers Subjective Subjective Patient reports: feels better, voiding w/o difficulty (fitzgerald draining well) and afebrile; denies shortness of breath Exam Const General: no acute distress, frail appearing and ill appearing acutely Nutritional Appearance: average body habitus Orientation: alert, awake and oriented x3 HENMT Head: normal to inspection Ears: external ears normal General nose exam: external nose normal Mouth: moist mucous membranes Eyes General: appearance normal, both eyes and all related structures Neck Neck: normal visual inspection Resp Effort & Inspection: no grunting Cardio Rate: regular rate Skin General skin exam: no rashes or lesions noted Neuro General: patient alert and patient oriented x3 Extrem General: normal to inspection Psych Mental Status: mental status grossly normal Objective Last Vital Signs Temp 36.6 C 08/03/20 07:36 Pulse 92 H 08/03/20 07:36 Resp 19 08/03/20 07:36 BP 132/79 08/03/20 07:36 Pulse Ox 95 08/03/20 07:36 Laboratory Results - last 24 hr 08/02/20 08/02/20 08/02/20 12:06 12:06 12:06 WBC 12.45 H RBC 5.45 H Hgb 17.1 H Hct 50.4 H MCV 92.5 MCH 31.4 MCHC 33.9 RDW 15.8 H Plt Count 158 MPV 10.2 Immature Gran % 0.9 Neutrophils % 88.9 Lymphocytes % 5.0 Monocytes % 4.7 Eosinophils % 0.1 Basophils % 0.4 Nucleated RBC % 0 Absolute Neutrophils 11.07 H Absolute Lymphocytes 0.62 L Absolute Monocytes 0.59 Absolute Eosinophils 0.01 Absolute Basophils 0.05 PT 13.4 H INR 1.3 H APTT 27.4 VBG pH VBG pCO2 VBG pO2 VBG HCO3 VBG Total CO2 VBG O2 Saturation VBG Base Excess Sodium Potassium Chloride Carbon Dioxide Anion Gap BUN Creatinine Estimated GFR/1.73 m2 Glucose Calcium Magnesium Cancelled Total Bilirubin Conjugated Bilirubin AST ALT Alkaline Phosphatase Troponin I NT-Pro-B Natriuret Pep Total Protein Albumin Procalcitonin Urine Color Urine Clarity Urine pH Ur Specific Vina Urine Protein Urine Ketones Urine Blood Urine Nitrite Urine Bilirubin Urine Urobilinogen Ur Leukocyte Esterase Urine RBC Urine WBC Ur Epithelial Cells Urine Crystals Urine Bacteria Urine Casts Urine Mucus Urine Other Ur Culture Indicated? Urine Glucose COVID-19 Source SARS-CoV-2 (PCR) 08/02/20 08/02/20 08/02/20 12:06 12:38 12:43 WBC RBC Hgb Hct MCV MCH MCHC RDW Plt Count MPV Immature Gran % Neutrophils % Lymphocytes % Monocytes % Eosinophils % Basophils % Nucleated RBC % Absolute Neutrophils Absolute Lymphocytes Absolute Monocytes Absolute Eosinophils Absolute Basophils PT INR APTT VBG pH VBG pCO2 VBG pO2 VBG HCO3 VBG Total CO2 VBG O2 Saturation VBG Base Excess Sodium 127 L Potassium 5.4 H Chloride 93 L Carbon Dioxide 22.9 Anion Gap 11.1 H BUN 32 H Creatinine 0.8 Estimated GFR/1.73 m2 >= 60.00 Glucose 216 H Calcium 8.9 Magnesium 1.5 L Total Bilirubin 1.4 H Conjugated Bilirubin 0.5 H AST 20 ALT 33 Alkaline Phosphatase 182 H Troponin I Cancelled < 0.05 NT-Pro-B Natriuret Pep Cancelled 40492 H Total Protein 7.4 Albumin 2.7 L Procalcitonin 0.4 Urine Color Urine Clarity Urine pH Ur Specific Vina Urine Protein Urine Ketones Urine Blood Urine Nitrite Urine Bilirubin Urine Urobilinogen Ur Leukocyte Esterase Urine RBC Urine WBC Ur Epithelial Cells Urine Crystals Urine Bacteria Urine Casts Urine Mucus Urine Other Ur Culture Indicated? Urine Glucose COVID-19 Source SARS-CoV-2 (PCR) 08/02/20 08/02/20 08/02/20 12:43 12:45 13:14 WBC RBC Hgb Hct MCV MCH MCHC RDW Plt Count MPV Immature Gran % Neutrophils % Lymphocytes % Monocytes % Eosinophils % Basophils % Nucleated RBC % Absolute Neutrophils Absolute Lymphocytes Absolute Monocytes Absolute Eosinophils Absolute Basophils PT INR APTT VBG pH 7.35 VBG pCO2 41 VBG pO2 29 VBG HCO3 23 VBG Total CO2 20 L VBG O2 Saturation 81 VBG Base Excess -3 L Sodium Potassium Chloride Carbon Dioxide Anion Gap BUN Creatinine Estimated GFR/1.73 m2 Glucose Calcium Magnesium Total Bilirubin Conjugated Bilirubin AST ALT Alkaline Phosphatase Troponin I NT-Pro-B Natriuret Pep Total Protein Albumin Procalcitonin Urine Color Dark yellow Urine Clarity Sl cloudy Urine pH 6.0 Ur Specific Vina 1.025 Urine Protein 100 H Urine Ketones 15 H Urine Blood Negative Urine Nitrite Negative Urine Bilirubin Small H Urine Urobilinogen 0.2 Ur Leukocyte Esterase Negative Urine RBC 3-5 H Urine WBC 3-5 Ur Epithelial Cells Rare Urine Crystals Negative Urine Bacteria Few Urine Casts 3-5 coarse granular Urine Mucus Moderate Urine Other Few renal Ur Culture Indicated? Yes Urine Glucose Negative COVID-19 Source Nasal/nares SARS-CoV-2 (PCR) Negative 08/02/20 08/02/20 08/03/20 16:14 21:00 06:15 WBC RBC Hgb Hct MCV MCH MCHC RDW Plt Count MPV Immature Gran % Neutrophils % Lymphocytes % Monocytes % Eosinophils % Basophils % Nucleated RBC % Absolute Neutrophils Absolute Lymphocytes Absolute Monocytes Absolute Eosinophils Absolute Basophils PT INR APTT VBG pH VBG pCO2 VBG pO2 VBG HCO3 VBG Total CO2 VBG O2 Saturation VBG Base Excess Sodium 129 L Potassium 3.8 D Chloride 95 L Carbon Dioxide 26.1 Anion Gap 7.9 BUN 32 H Creatinine 0.8 Estimated GFR/1.73 m2 >= 60.00 Glucose 152 H Calcium 8.0 L Magnesium Total Bilirubin Conjugated Bilirubin AST ALT Alkaline Phosphatase Troponin I < 0.05 < 0.05 < 0.05 NT-Pro-B Natriuret Pep Total Protein Albumin Procalcitonin Urine Color Urine Clarity Urine pH Ur Specific Vina Urine Protein Urine Ketones Urine Blood Urine Nitrite Urine Bilirubin Urine Urobilinogen Ur Leukocyte Esterase Urine RBC Urine WBC Ur Epithelial Cells Urine Crystals Urine Bacteria Urine Casts Urine Mucus Urine Other Ur Culture Indicated? Urine Glucose COVID-19 Source SARS-CoV-2 (PCR) 08/03/20 06:15 WBC 9.40 RBC 5.33 H Hgb 16.7 H Hct 48.7 H MCV 91.4 MCH 31.3 MCHC 34.3 RDW 15.5 H Plt Count 136 MPV 10.0 Immature Gran % 1.2 Neutrophils % 84.6 Lymphocytes % 6.6 Monocytes % 6.6 Eosinophils % 0.5 Basophils % 0.5 Nucleated RBC % 0 Absolute Neutrophils 7.95 H Absolute Lymphocytes 0.62 L Absolute Monocytes 0.62 Absolute Eosinophils 0.05 Absolute Basophils 0.05 PT INR APTT VBG pH VBG pCO2 VBG pO2 VBG HCO3 VBG Total CO2 VBG O2 Saturation VBG Base Excess Sodium Potassium Chloride Carbon Dioxide Anion Gap BUN Creatinine Estimated GFR/1.73 m2 Glucose Calcium Magnesium Total Bilirubin Conjugated Bilirubin AST ALT Alkaline Phosphatase Troponin I NT-Pro-B Natriuret Pep Total Protein Albumin Procalcitonin Urine Color Urine Clarity Urine pH Ur Specific Vina Urine Protein Urine Ketones Urine Blood Urine Nitrite Urine Bilirubin Urine Urobilinogen Ur Leukocyte Esterase Urine RBC Urine WBC Ur Epithelial Cells Urine Crystals Urine Bacteria Urine Casts Urine Mucus Urine Other Ur Culture Indicated? Urine Glucose COVID-19 Source SARS-CoV-2 (PCR)
--- NOTE | 2020-08-03 13:54 | PT.INTREAT ---
PT Notes Visit Reasons: Congestive heart failure 08/03/2020 SUBJECTIVE: Pt stating she is exhausted and wants to go to bed. Notes some pain with movement into her back. OBJECTIVE: TRANSFERS Sit to stand: Min A Stand to sit: Min A Sit to supine: Mod A x 2 GAIT Device: FWW Weight bearing: AT Assist: min A Distance: 5'x2 Deviation: Forward flexed at the trunk. Cues for encouragement. ASSESSMENT: Minimal assist with transfers, appears fatigued after sitting up for a few hours. Pt will benefit from continued gait training with FWW as well as light strengthening to her tolerance. PLAN: Continue current POC. Treatment time: 20' [id number] Mariel Warren, CONSUMER SERVICES CONSULTANT
[2020-08-03 16:01] VITALS: BP 114/58; PULSE 82; RESP 19; TEMP 36.4; O2SAT 98
[2020-08-03] MEDS: Normal Saline 250 ML IV (16:25)
[2020-08-03] MEDS: Normal Saline 1,000 ML 50 ML IV (17:25)
--- NOTE | 2020-08-03 17:58 | INITIAL_ITS ---
- If Service Date Differs Date of service: 08/03/20 Time of Service: 18:03 Care Management Initial Assess REASON FOR HOSPITALIZATION:: CHF, compression fracture PAST MEDICAL HISTORY/PAST SURGICAL HISTORY:: Refer to MD documention. PREVIOUS FUNCTIONAL STATUS/SOCIAL/FAMILY SUPPORTS:: Carlos resides in [place], she recently relocated to her daughter's home. She primarily seeks care at [facility] but was brought to [facility] but her daughter, reportedly shortly after discharging from [facility]. CURRENT FUNCTIONAL STATUS:: Carlos is tired; likely a side effect of pain medication. She remains acute on IV medications, being treated for pulmonary edema, pneumonia and compression fractures. PT has yet to evaluate her due to patient's pain management and exhaustion, CM continues to follow. ADVANCE DIRECTIVES:: None on file Has patient been provided with info about the portal/API?: No Did the patient sign up for the portal?: No CODE STATUS:: DNR/DNI INSURANCE COVERAGE / FINANCIAL ISSUES:: Medicare CURRENT HOME/COMMUNITY SERVICES/EQUIPMENT:: Unknown at this time. Recently discharged from [facility]. PRIMARY CARE PHYSICIAN:: None local. POTENTIAL DISCHARGE NEEDS:: Further evaluations to inform discharge considerations. PATIENT/FAMILY EDUCATION NEEDS:: Review discharge instructions, discuss Ask Me Three. ANTICIPATED BARRIERS TO DISCHARGE:: None identified at this time. TRANSPORTATION:: TBD by disposition. PLAN:: Undetermined plan at this time. CM continues to follow.
[2020-08-03 19:55] VITALS: O2SAT 95
[2020-08-03] MEDS: Lidocaine 5% Patch 1 PATCH TP (20:29)
[2020-08-03 23:00] VITALS: BP 119/68; PULSE 63; RESP 19; TEMP 36.2; O2SAT 94
[2020-08-04] VITALS (7 sets, daily range): BP systolic 117–167; BP diastolic 72–87; PULSE 92–112; RESP 17–22; TEMP 35.9–37.5; O2SAT 93–96
[2020-08-04] MEDS: Ketorolac 15 MG/ML VIAL IVP ×3 (03:35→22:33)
[2020-08-04] MEDS: Levothyroxine 112 MCG TAB PO (05:19)
[2020-08-04 07:22] LABS: Abs Immature Grans 0.12 10^3/uL (0.0-0.06); Absolute Basophil Count 0.05 10^3/uL (0.0-0.2); Absolute Eosinophil Count 0.07 10^3/uL (0.0-0.7); Absolute Lymphocyte Count 0.63 10^3/uL (1.2-3.4); Absolute Monocyte Count 0.72 10^3/uL (0.1-0.8); Absolute Neutrophil Count 7.12 10^3/uL (1.2-6.7); Basophils % 0.6; Eosinophils % 0.8; HGB 16.5 g/dL (11.2-15.7); Immature Grans % 1.4; Lymphocytes % 7.2; MCH 31.7 pg (27.0-33.0); MCHC 35.1 % (32.0-36.0); MCV 90.2 fL (80-95); MPV 10.1 fL (8.0-11.0); Monocytes % 8.3; Neutrophils % 81.7; Nucleated RBC 0 %; Platelet Count 137 10^3/uL (130-400); RBC 5.21 10^6/uL (3.93-5.22); RDW 15.5 % (11.7-14.6); RDW-SD 50.4 fL; WBC 8.71 10^3/uL (4.4-10.8)
[2020-08-04 07:35] LABS: ALT 17 U/L (14-59); AST 13 U/L (15-37); Alkaline Phosphatase 137 U/L (46-116); Anion Gap 7.7 mmol/L (3-11); BUN 25 mg/dL (7-18); CO2 24.3 mmol/L (21.0-32.0); CREATININE 0.7 mg/dL (0.55-1.02); Calcium 7.8 mg/dL (8.5-10.1); Chloride 96 mmol/L (98-107); Glucose 145 mg/dL (74-106); Magnesium 1.6 mg/dL (1.8-2.4); Sodium 128 mmol/L (136-145); Total Protein 5.5 g/dL (6.4-8.2)
--- NOTE | 2020-08-04 08:08 | OTIE_ITS ---
Occupational Therapy Notes Inpatient Occupational Therapy Evaluation Date: 08/04/20 Referring Doctor:Shante Mojica NP OT Orders: Non-Urgent Precautions: Fall, standard, DNR/DNI PATIENT PROFILE/ADMITTING DIAGNOSIS: Pt is an 84 year old female who was admitted through the ED with a dx of elevated LFTs, DM II, hypothyroidism, compression fx, A-Fib, Hypoxia, pulmonary edema, pneumonia. Past Medical History: Refer to pts EMR Social History/Home Situation: Pt states that she previously lived alone and recently moved in with her daughter. She states that she needs help with her ADLs at times but likes to think that she is fairly (I). Equipment owned/DME: Unable to assess SUBJECTIVE: Pt was lying in bed when OT arrived, she was agreeable to OT session but states that she is in so much pain. OBJECTIVE: General Observation: Pleasant, although notable pain and unable to perform s itting position due to pain. Mental Status: A&Ox3 Pain: 10/10 pain in back ROM: RUE AROM WFL but limited due to pain L UE AROM WDL but limited due to pain STRENGTH: RUE Unable to test and pt denies LUE Unable to test and pt denies FUNCTIONAL MOBILITY/ADLS: BATHING lying in bed with max (A) Set up/clean up Bathing UE Mod (A) face and (B) UE otherwise max (A) Bathing LE max (A) DRESSING lying in bed Dressing UE Max (A) don and doffing hospital gown Dressing LE Max (A) don and doffing (B) socks GROOMING Mod (A) brushing hair TOILETING Avina in place EATING NT BALANCE: NT as pt was lying in bed and refused to move for session. SPECIAL TESTS: Daily Activity Limitations Standardized Measure [facility] AM -PAC ?6 clicks? Daily Activity Inpatient Short Form: Raw score: 10 Standardized score: 27.31 CMS score: 74.70% INFORMED CONSENT/EDUCATION: Pt instructed in purpose of OT Consult and plan of care. ASSESSMENT: Patient is a 84-year-old female referred to occupational therapy services with diagnosis of elevated LFTs, DM II, hypothyroidism, compression fx, A-Fib, Hypoxia, pulmonary edema, pneumonia. Patient presents with clinical signs and symptoms consistent with dx, as demonstrated by the following impairment level findings/functional limitations: Impairments in ADL/IADL and leisure activities, pain in back and (B) LE, decreased functional activity tolerance, impairments in UE/LE dressing, decreased bed mobility. AMPAC score 10 Patient is assessed as a Moderate 29954 complexity based on the following: History: see above Examination: see functional limitations as noted above Presentation: evolving Decision Making: AMPA 10 GOALS Goals x1 week 1. Grooming- sitting in chair with max (A) Set up/clean up (I) brushing teeth 2. Dressing- Sitting in chair (I) UE and mod (I) LE 3. Bathing- sitting in chair with max (A) set up/clean up (I) UE 4. Toileting- on commode (I) 5. Eating- sitting in chair (I) PLAN OF CARE/TREATMENT PLAN: 1x/day, 5 days/ week x 1week Initiate Occupational Therapy Services for bathing, dressing, grooming, toileting, eating, transfer training. DISCHARGE RECOMMENDATIONS Based on pts current level of function OT recommends that pt should go to SNF when medically cleared per MD. TREATMENT TIME/MINUTES/CODES 41193, [id number], 25 minutes (07:45) Theresa Quinonez OTR/[facility]
[2020-08-04] MEDS: Polyethylene Glycol 3350 17 GM PACKET PO (08:22)
[2020-08-04] MEDS: Doxycycline Hyclate 100 MG CAP PO ×2 (08:23→20:17)
[2020-08-04] MEDS: Aspirin E.C. 81 MG TABEC PO (08:23)
[2020-08-04] MEDS: Apixaban 2.5 MG TAB PO ×2 (08:23→20:16)
[2020-08-04] MEDS: Psyllium PKT 1 EACH PO (08:23)
[2020-08-04] MEDS: Furosemide 20 MG TAB PO (08:23)
[2020-08-04] MEDS: dilTIAZem CD 120 MG CAPCR PO (08:23)
[2020-08-04] MEDS: Acetaminophen 500 MG TAB PO ×2 (08:23→20:16)
[2020-08-04] MEDS: Metoprolol CR 50 MG TABCR PO (08:23)
[2020-08-04] MEDS: Docusate Sodium 100 MG CAP PO (08:24)
[2020-08-04] MEDS: Lidocaine Patch Removal 1 EACH TD (08:26)
[2020-08-04] MEDS: MAGNESIUM SULFATE 1 GM/100 ML BAG IVPB (10:11)
--- NOTE | 2020-08-04 10:39 | W.PM.PROGNOT ---
Date of Service Date of service: 08/04/20 Time of Service: 10:40 Assessment and Plan Assessment and plan (1) Pulmonary edema: Status: Acute Assessment and plan: continue to monitor I&O and daily weights closely continue lasix daily echo Conclusion Left Ventricle : The left ventricle is normal size. Left ventricular systolic function is mild to moderately decreased. There is normal left ventricular wall thickness. There is global hypokinesis of the left ventricle. LVEF is 44%. Right Ventricle : Right ventricle is moderately dilated. Right ventricle is mildly hypokinetic. The RVSP is 56.3mmHg. Atria : Left atrium is mildly dilated. Right atrium is severely dilated. Mitral Valve : Moderate mitral annular calcification. No evidence of mitral valve stenosis. Mild mitral regurgitation. Tricuspid Valve : Tricuspid valve is grossly normal in structure and function. Tricuspid annulus is dilated. Moderate to severe tricuspid regurgitation. There is no tricuspid valve stenosis. Great Vessels : The aortic root is normal in size. The ascending aorta is mildly dilated. Aortic arch is normal in caliber. . oxygen to keep sats above 92 serial troponin negative last echo September 29, 2018 at [facility]: EF 50% with anteroseptal wall base to mid severely hypokinetic, inferoseptal wall base to mid is severely hypokinetic , mildly dilated RV, RV function is preserved with apical hypokinesis. The interventricular septum in flattened consistent with RV pressure overload. both atria moderately dilated, NO , mild to moderate AI, moderate TR evidence of moderate pulmonary HTN PA pressures 47.92, pericardium normal, left pleural effusion present. (2) Diabetes mellitus type 2 in obese: Status: Acute Assessment and plan: diabetic diet sliding scale coverage as needed. HA1C 6.1 in Oct 2019 home med list: glipizide 10 mg po daily which was placed on hold on discharge d/t elevated tbili. (3) Pneumonia: Status: Acute Assessment and plan: recently treated for and discharged on doxycycline day 07/13 blood cultures negative to date, respiratory status has been stable, white count normalized (4) Atrial fibrillation: Status: Chronic Assessment and plan: rate controlled on cardizem anticoagulated on apixaban continue home medications (5) Compression fracture: Status: Acute Assessment and plan: continue pain management, scheduled apap, lidocaine patch, prn oxycodone PT[facility]OT [facility] grade 1 superior endplate compression of L1, grade 2 biconcave compression deformity of T12 in indeterminate age, progressive spondylosis of L5-S1. mild broad based lumbar dextrorotocurature, stable. (6) Hypothyroidism: Status: Chronic Assessment and plan: continue synthyroid. TSH on 07/22/2020 2.89 (7) Elevated LFTs: Status: Acute Assessment and plan: work up at [facility] included: hepatitis panel: negative Tbil 1.7, dbil 0.8, alp 148, alt 33, ast 26 ggt 143, tp 6 alb 3.0 INR 1.3 ultrasound of RUQ: liver appears hypoechoic. no focal intrahepatic mass or intrahepatic bilary dilatation noted. The appearance could be on basis of hepatitis. common duct measure 5 mm, WNL, gallbladder free of stone or wall thickening. probably mild sludge present, seen on previous CT scan 2018, pancreas is satisfactorily imaged and appears unremarkable. right kidney grossed free of hydro, no free fluid noted right UQ. they stopped her asa, glypizide and possible connection to bactrim? (8) DVT prophylaxis: Status: Acute Assessment and plan: fully anticoagulated on apixaban (9) Discharge planning issues: Status: Acute Assessment and plan: case management following anticipate swing level discharge vs home with home health services. discussed with Dr Flowers Subjective Subjective Patient reports: no new complaints and afebrile; denies shortness of breath Exam Const General: no acute distress, frail appearing and ill appearing acutely Nutritional Appearance: average body habitus Orientation: alert, awake and oriented x3 HENMT Head: normal to inspection Ears: external ears normal General nose exam: external nose normal Mouth: moist mucous membranes Eyes General: appearance normal, both eyes and all related structures Neck Neck: normal visual inspection Resp Effort & Inspection: no grunting Cardio Rate: regular rate Skin General skin exam: no rashes or lesions noted Neuro General: patient alert and patient oriented x3 Extrem General: normal to inspection Psych Mental Status: mental status grossly normal Objective Last Vital Signs Temp 37.1 C 08/04/20 07:37 Pulse 93 H 08/04/20 07:37 Resp 19 08/04/20 07:37 BP 122/76 08/04/20 07:37 Pulse Ox 94 08/04/20 08:40 Laboratory Results - last 24 hr 08/04/20 08/04/20 06:32 06:32 WBC 8.71 RBC 5.21 Hgb 16.5 H Hct 47.0 H MCV 90.2 MCH 31.7 MCHC 35.1 RDW 15.5 H Plt Count 137 MPV 10.1 Immature Gran % 1.4 Neutrophils % 81.7 Lymphocytes % 7.2 Monocytes % 8.3 Eosinophils % 0.8 Basophils % 0.6 Nucleated RBC % 0 Absolute Neutrophils 7.12 H Absolute Lymphocytes 0.63 L Absolute Monocytes 0.72 Absolute Eosinophils 0.07 Absolute Basophils 0.05 Sodium 128 L Potassium 4.0 Chloride 96 L Carbon Dioxide 24.3 Anion Gap 7.7 BUN 25 H Creatinine 0.7 Estimated GFR/1.73 m2 >= 60.00 Glucose 145 H Calcium 7.8 L Magnesium 1.6 L Total Bilirubin 1.0 AST 13 L ALT 17 Alkaline Phosphatase 137 H Total Protein 5.5 L Albumin 2.0 L
[2020-08-04] MEDS: Insulin Aspart 300 UNITS/3 ML PEN SC ×2 (11:53→16:50)
--- NOTE | 2020-08-04 13:42 | PT.INTREAT ---
Date of service: 08/04/20 Time of Service: 13:42 PT Notes Visit Reasons: Congestive heart failure Physical Therapy Inpatient Treatment Note 08/04/2020 SUBJECTIVE: Patient required encouragement to participate in therapy today. Verbalized that everybody she loves has passed and that she would like to follow them now. Emphasized that she is dying. Continues to report pain in back but of less intensity than previous days. Afraid to be left alone but understands that somebody will come if she uses her call hoskins. Agreeable to putting on TLSO for back support and pain relief. OBJECTIVE: Pain: Moderate pain in back that did not limit getting out of bed and going for a walk TRANSFERS: Supine to sit contact-guard assist with HOB at 40 degrees Sit to supine minimal assist to BLE in the afternoon session due to fatigue Sit to stand: Contact-guard assist Stand to sit: Contact-guard assist Sit to supine: Contact-guard assist GAIT Device: FWW Weight bearing: AT Assist: Minimal assist Distance: 25 feet in the a.m. and 10 feet in the p.m. Deviation: Excessive trunk flexion due to thoracic kyphosis and tends to lose balance posteriorly when asked to straighten trunk. Required minimal assist to guard patient posteriorly during ambulation activity. Thera Ex: Patient tolerated seated level range of motion exercises during the morning session but refused anything else during the afternoon session. Please refer to exercise sheet for more details. ASSESSMENT: Patient may benefit from mental health consult/counseling to address signs of depression, grief, and abandonment issues that are affecting her ability to participate in therapy. PLAN: Will coordinate with care management, nurse, and MD regarding patient's barriers to achieving functional mobility goals. Treatment time: Session 1??[id number] x 30 minutes, 26404 x 17 minutes beginning at 11:14 AM. Session 2??[id number] x12 minutes, 9711 0 x 12 minutes beginning at 13:42 PM.
--- NOTE | 2020-08-04 15:08 | CHAPLAIN ---
Carlos was sitting up in bed when I visited. She was tearful at times saying she was in pain. I contacted her TIRE WORKER to check out her chest pain, then her nurse arrived for an evaluation. Carlos shared some persona history, telling me about growing [place], with four brothers and three sister. Carlos's , Saran, about five years ago and Carlos said she greatly misses him. She said people have been coming into her room and saying they will return, and then don't. Carlos has a twin brother who also recently and they used to talk on the phone twice a day.
--- NOTE | 2020-08-04 15:18 | PHA.REVIEW ---
Pharmacy Admission Review - Admission Clinical Review Elevated LFTs (Acute) Diabetes mellitus type 2 in obese (Acute) Discharge planning issues (Acute) DVT prophylaxis (Acute) Compression fracture (Acute) Hypoxia (Acute) Pulmonary edema (Acute) Pneumonia (Acute) No Known Allergies Allergy (Unverified 08/02/20 12:13) Height 5 ft 7 in Weight 61.9 kg - Renal Dosing Renal Dosing: BUN 25 mg/dL (7-18) H 08/04/20 06:32 Creatinine 0.7 mg/dL (0.55-1.02) 08/04/20 06:32 Medications needing adjustments: Reviewed - Anticoagulation Anticoagulation: Hgb 16.5 g/dL (11.2-15.7) H 08/04/20 06:32 Hct 47.0 % (36.0-46.0) H 08/04/20 06:32 Plt Count 137 10^3/uL (130-400) 08/04/20 06:32 INR 1.3 (0.9-1.1) H 08/02/20 12:06 Creatinine 0.7 mg/dL (0.55-1.02) 08/04/20 06:32 Therapeutic Anticoagulation: Reviewed Medications: Apixaban - Opiate Usage Evaluate Pain Scale/Pains Meds: N/A Scheduled Bowel Reg ordered if on Opiates?: Yes - Relevant Labs Sodium 128 mmol/L (136-145) L 08/04/20 06:32 Potassium 4.0 mmol/L (3.5-5.1) 08/04/20 06:32 Chloride 96 mmol/L (98-107) L 08/04/20 06:32 Magnesium 1.6 mg/dL (1.8-2.4) L 08/04/20 06:32 Electrolytes, C-Reactive P, ESR: Reviewed - DM Control DM Control: Glucose 145 mg/dL (74-106) H 08/04/20 06:32 Finger Stick Blood Glucose 188 Finger Stick Blood Glucose 188 Finger Stick Blood Glucose 188 Finger Stick Blood Glucose 132 Finger Stick Blood Glucose 132 Finger Stick Blood Glucose 132 Insulin Dosing: Reviewed (aspart per SS) - Heart Failure/LA Heart Failure/LA: Troponin I < 0.05 ng/mL (<0.06) 08/03/20 06:15 NT-Pro-B Natriuret Pep 49094 pg/mL (<300) H 08/02/20 12:43 EF%, ALEXX's, B-Blockers, Diuretics: Reviewed (dilt, lasix, metoprolol) - BP Control BP Control: Blood Pressure 137/82 Blood Pressure 150/87 Blood Pressure 122/76 Blood Pressure 117/72 If elevated: Reviewed - Qtc Review If Elevated: Reviewed - IV to PO Switch IV Medications: Reviewed - Home Meds Home Med List reviewed: Reviewed Relevent Home Meds Not ordered & why?: all ordered - Current meds Current Medication Order Review: Reviewed (furosemide reduced to once a day today, doxy continues for prev dx of CAP) - Comments Comments/Follow Ups: no weight documented today but down ~4kg from 08/02 to 08/03
[2020-08-04] MEDS: Normal Saline Flush 10 ML SYR IVP (15:31)
[2020-08-04] MEDS: Sodium Bicarbonate 650 MG TAB PO (16:11)
[2020-08-04] MEDS: Normal Saline 1,000 ML 75 ML IV (16:11)
--- NOTE | 2020-08-04 18:48 | PDOC.CMPRO ---
Care Management Progress Note S/O: Carlos was hunched over in her chair when CM met with her. She apologized, CM validated that it was okay to not be okay. Carlos rated her pain a 10/10 and when asked about what she would like to see for discharge she stated I want to . ED Frey asked this senior mortgage underwriter to fax referral to [facility] at daughter's request, CM faxed referral and continues to follow. Awaiting Palliative Consult to enable Carlos to discuss goals of care including pain management. A: 84 year old female admitted to [facility] for CHF, compression fractures, pneumonia. P: CM continues to follow, referral faxed to [facility]. Awaiting Palliative Consult.
[2020-08-04] MEDS: Lidocaine 5% Patch 1 PATCH TP (20:18)
[2020-08-04] MEDS: Magic Mouthwash 119 ML BTL 10 ML MM (22:34)
[2020-08-05] MEDS: Normal Saline 1,000 ML 75 ML IV (04:25)
[2020-08-05] MEDS: Levothyroxine 112 MCG TAB PO (05:27)
[2020-08-05] MEDS: Ketorolac 15 MG/ML VIAL IVP ×2 (05:28→11:56)
[2020-08-05 07:01] VITALS: BP 151/79; PULSE 102; RESP 21; TEMP 37; O2SAT 95
[2020-08-05 07:16] LABS: Abs Immature Grans 0.24 10^3/uL (0.0-0.06); Absolute Basophil Count 0.06 10^3/uL (0.0-0.2); Absolute Eosinophil Count 0.03 10^3/uL (0.0-0.7); Absolute Lymphocyte Count 0.58 10^3/uL (1.2-3.4); Absolute Monocyte Count 0.65 10^3/uL (0.1-0.8); Absolute Neutrophil Count 7.03 10^3/uL (1.2-6.7); Basophils % 0.7; Eosinophils % 0.3; HCT 48.3 % (36.0-46.0); HGB 16.6 g/dL (11.2-15.7); Immature Grans % 2.8; Lymphocytes % 6.8; MCH 31.6 pg (27.0-33.0); MCHC 34.4 % (32.0-36.0); MCV 91.8 fL (80-95); MPV 9.5 fL (8.0-11.0); Monocytes % 7.6; Neutrophils % 81.8; Nucleated RBC 0 %; Platelet Count 143 10^3/uL (130-400); RBC 5.26 10^6/uL (3.93-5.22); RDW 15.5 % (11.7-14.6); RDW-SD 50.9 fL; WBC 8.59 10^3/uL (4.4-10.8)
[2020-08-05 07:32] LABS: Anion Gap 7.3 mmol/L (3-11); BUN 15 mg/dL (7-18); CO2 23.7 mmol/L (21.0-32.0); CREATININE 0.6 mg/dL (0.55-1.02); Calcium 7.8 mg/dL (8.5-10.1); Chloride 96 mmol/L (98-107); Glucose 153 mg/dL (74-106); Potassium 4.2 mmol/L (3.5-5.1); Sodium 127 mmol/L (136-145)
[2020-08-05 07:34] LABS: Magnesium 1.6 mg/dL (1.8-2.4)
[2020-08-05] MEDS: Furosemide 20 MG TAB PO (08:18)
[2020-08-05] MEDS: Doxycycline Hyclate 100 MG CAP PO (08:18)
[2020-08-05] MEDS: Metoprolol CR 50 MG TABCR PO (08:18)
[2020-08-05] MEDS: Docusate Sodium 100 MG CAP PO ×2 (08:18→19:49)
[2020-08-05] MEDS: dilTIAZem CD 120 MG CAPCR PO (08:18)
[2020-08-05] MEDS: Acetaminophen 500 MG TAB PO ×3 (08:18→19:49)
[2020-08-05] MEDS: Lidocaine Patch Removal 1 EACH TD (08:19)
[2020-08-05] MEDS: Apixaban 2.5 MG TAB PO (08:19)
[2020-08-05] MEDS: Aspirin E.C. 81 MG TABEC PO (08:19)
--- NOTE | 2020-08-05 09:00 | OTTR_ITS ---
Date of service: 08/05/20 Time of Service: 08:10 Occupational Therapy Notes Occupational Therapy Inpatient Treatment Note Date: 08/05/20 PRECAUTIONS: Fall, standard, DNR/DNI SUBJECTIVE: Pt was sitting in bed when OT arrived, she notes that she is in so much pain and wishes she could but for some reason the lord doesn't want her yet. OBJECTIVE: PAIN: 12/18 pain in back per pt report BATHING: sitting in bed with max (A) set up/clean up Upper Body: (I) with mod vc throughout Lower Body: Max (A) DRESSING: sitting in bed Upper Extremity: Pt was able to don and [facility] gown with mod (A) and min vc. Lower Extremity:NT pt refuses socks at this time ASSESSMENT/PLAN: Plan is to continue to progress pts functional (I), she is able to perform UE ROM although refuses due to pain. She is resistant to performance as she states that her pain is so bad. OT was able to assess pt with UE bathing, she still requires max (A) for LE. TREATMENT CODES/TIME: [id number], 15 minutes (08:10) Theresa Quinonez, OTR/[facility]
--- NOTE | 2020-08-05 09:00 | CMPROGNOTE_ITS ---
Care Management Progress Note S/O: Carlos made her wishes clear to the Hospitalist, Palliative provider, nurses and this tech writer and transitioned to comfort care. Her daughter struggled with this news and discussed with MD. CM continues to follow. A: 84 year old female admitted to [facility] for CHF, compression fractures, pneumonia. P: CM continues to follow, referral faxed to [facility]. Patient is comfort care measures at this time, undetermined if she will remain at [facility] or discharge to [facility] dependent on stability and bed availability.
--- NOTE | 2020-08-05 09:00 | PDOC.CMPRO ---
Care Management Progress Note S/O: Carlos made her wishes clear to the Hospitalist, Palliative provider, nurses and this song writer and transitioned to comfort care. Her daughter struggled with this news and discussed with MD. CM continues to follow. A: 84 year old female admitted to [facility] for CHF, compression fractures, pneumonia. P: CM continues to follow, referral faxed to [facility]. Patient is comfort care measures at this time, undetermined if she will remain at [facility] or discharge to [facility] dependent on stability and bed availability.
[2020-08-05] MEDS: MAGNESIUM SULFATE 4 GM/100 ML BAG IVPB (10:02)
[2020-08-05] MEDS: Normal Saline Flush 10 ML SYR IVP ×3 (11:56→21:27)
[2020-08-05] MEDS: Salt Supplement (BUFFERED) TAB 1 TAB PO (11:56)
[2020-08-05] MEDS: Insulin Aspart 300 UNITS/3 ML PEN SC (11:56)
--- NOTE | 2020-08-05 12:01 | PT.INNT ---
Date of service: 08/05/20 Time of Service: 12:01 PT Notes Visit Reasons: Congestive heart failure Refused to to do anything with PT today and to get out of bed for lunch stating that she is dying. Updated respiratory care specialist Alyssa of patient's decision. MELISSA Shah indicated that a palliative consult has been placed to clarify patient's wishes. Thank you for the opportunity to participate in the care of this patient. Fabby Neff PT, DPT, CLT [facility] [place], [place]
--- NOTE | 2020-08-05 12:36 | W.PALLCONSUL ---
Date of service: 08/05/20 Time of Service: 12:37 History of Present Illness History of Present Illness Chief Complaint: abdominal pain Narrative: Carlos is a very pleasant 84 past medical history significant for type 2 diabetes, hypothyroidism, atrial fibrillation, T12 and L1 compression fractures, who was recently had pneumonia at a hospital treated and discharged home. She presented to the emergency department and was found to have pulmonary edema, question pneumonia and hyponatremia. She had an echocardiogram which showed systolic dysfunction and LVEF of 44%. Palliative care was consulted to discuss goals of care as the patient has continuously said that she wants to but her daughter does not agree. Carlos has capacity to make decisions for herself. She has abdominal pain, she tends to be constipated. She does not want more imaging to see what is going on in her abdomen. She has back pain due to compression fractures, shoulder pain and neck pain. She just wants symptom management. She wants to be comfortable and . She states, but I hate to cause trouble. She does not want Azalia to be upset. She states that she feels she has suffered enough. She misses her her , Mariano, her brothers have . She states, I have been saying that I want to for about 5 years, since my . I have been asking, why doesn't God take me. She lives with Azalia, her daughter who wants her to keep going. She told Azalia that she was going to stop eating and drinking but Azalia told her she would starve to . She does not think Azalia can take care of her anymore, she thinks she will put her in a care home. She is not sure if Azalia would feel differently if she was on comfort care or hospice. She is having difficulty getting around here at the hospital. She is eating very little. She was in [facility] in the past, she enjoyed it, she would go back there if she cannot go home. I've lived a long time... but I would hate to have her getting all upset. (referring to her daughter). Carlos is very clear that she does not want any more testing or treatment, she wants to be kept comfortable and she wants to . I called her daughter, Azalia, to discuss her mom's wishes. Azalia reports that her mom has said this in the past and then has done quite well once her sodium was corrected. I explained that we will have to follow her mom's wishes and the plan is to keep her comfortable and stop aggressive care. Azalia states that she understands, although she still made comments about correcting sodium and getting better. Shannon Kline reviewed her [facility] chart and notes that Brents Na is at her baseline. Assessment and Plan Assessment and plan (1) Comfort measures only status: Status: Acute Assessment and plan: Carlos is a very pleasant 84 past medical history significant for type 2 diabetes, hypothyroidism, atrial fibrillation, T12 and L1 compression fractures, who was recently had pneumonia at a hospital treated and discharged home. She presented to the emergency department and was found to have pulmonary edema, question pneumonia and hyponatremia. She had an echocardiogram which showed systolic dysfunction and LVEF of 44%. Palliative care was consulted to discuss goals of care as the patient has continuously said that she wants to but her daughter does not agree. Carlos is clear that she does not want any further testing or treatment. She has capacity to make decisions for herself. She had a similar conversation with Shannon Kline, hospitalist ASSET PROTECTION GREETER. She wants to be kept comfortable and she wants to . She plans to stop eating and drinking as well. I called her daughter, Azalia, to discuss her mom's wishes. Azalia reports that her mom has said this in the past and then has done quite well once her sodium was corrected. I explained that we will have to follow her mom's wishes and the plan is to keep her comfortable and stop aggressive care. Azalia states that she understands, although she still made comments about correcting sodium and getting better. Shannon Kline reviewed her [facility] chart and notes that Carlos's Na is at her baseline. She has been transitioned to comfort-focused care. She has pain in her abdomen, back, neck, shoulders and has been started on a morphine drip for comfort. She will likely remain at [facility] for end of life care. (2) Atrial fibrillation: Status: Chronic (3) Congestive heart failure: Status: Chronic (4) Pulmonary edema: Status: Acute (5) Abdominal pain: Status: Acute (6) Back pain: Status: Acute (7) Ambulatory dysfunction: Status: Acute (8) Compression fracture: Status: Acute (9) Palliative care patient: Status: Acute Review of Systems All systems reviewed & are unremarkable except as noted in HPI and below PFSH Medical History (Updated 08/05/20 @ 14:41 by Génesis Cat NP) Abdominal pain Ambulatory dysfunction Atrial fibrillation Back pain Compression fracture Congestive heart failure Diabetes mellitus type 2 in obese Hypothyroidism Palliative care patient Pneumonia Pulmonary edema Social History Smoking/Tobacco Use Status: Former Tobacco Use Smoking risk assessment performed?: Yes Alcohol Intake: never Drug use: Never Exam Narrative Exam Narrative: General: Elderly female, appears stated age, appears fatigued, lying in bed with head of bed elevated. She is awake, alert and oriented. She answers questions appropriately, is very clear about her wishes. She appears uncomfortable With any movement and examination. HEENT: Normocephalic, atraumatic, pupils equal and round, makes eye contact, mucous membranes moist. Neck: Supple. Cardiovascular: Tachycardic. Respiratory: Appears SOB while talking at times, fine rales to left base, no wheezing. GI: abdomen appears round and distended, tender on palpation of abdomen. Extremities: moves all 4 extremities freely in bed. No significant edema to BLEs. Results Last Vital Signs Temp 37.0 C 08/05/20 07:01 Pulse 102 H 08/05/20 07:01 Resp 21 08/05/20 07:01 BP 151/79 H 08/05/20 07:01 Pulse Ox 95 08/05/20 07:01 Labs Result diagrams: 08/05/20 06:35 08/05/20 06:35 Labs: Laboratory Results - last 24 hr 08/05/20 08/05/20 08/05/20 06:35 06:35 06:35 WBC 8.59 RBC 5.26 H Hgb 16.6 H Hct 48.3 H MCV 91.8 MCH 31.6 MCHC 34.4 RDW 15.5 H Plt Count 143 MPV 9.5 Immature Gran % 2.8 Neutrophils % 81.8 Lymphocytes % 6.8 Monocytes % 7.6 Eosinophils % 0.3 Basophils % 0.7 Nucleated RBC % 0 Absolute Neutrophils 7.03 H Absolute Lymphocytes 0.58 L Absolute Monocytes 0.65 Absolute Eosinophils 0.03 Absolute Basophils 0.06 Sodium 127 L Potassium 4.2 Chloride 96 L Carbon Dioxide 23.7 Anion Gap 7.3 BUN 15 D Creatinine 0.6 Estimated GFR/1.73 m2 >= 60.00 Glucose 153 H Calcium 7.8 L Magnesium 1.6 L
--- NOTE | 2020-08-05 13:46 | W.PM.PROGNOT ---
Date of Service Date of service: 08/05/20 Time of Service: 13:47 Assessment and Plan Assessment and plan (1) Comfort measures only status: Start date: 08/05/20 Start time: 14:02 Status: Acute Assessment and plan: Met with palliative care today, she has decided she no longer wants to live. She has felt this way for a long time. She is in agony with her abdominal pain and multiple other areas of pain. She does not want to eat or drink. She has expressed this to her daughter several times but has not felt heard. [facility] she has decided to be made food court team member. She does not want any further testing done. She wants to be comfortable. Morphine drip started, nausea medications. scopalamine, protection agent consult placed. Continue to monitor comfort of patient discussed with Dr. eldridge Subjective Subjective Patient reports: other Interval history since last seen: Met with patient and she said she just wanted to . She was also writhing in pain from abd. Spoke with her about comfort measures. She wanted to think about it. When I came back to the office Génesis WARD from palliative was here and going to see her we spoke about the conversation the patient and I had and she went and met with the patient. After meeting with the patient, Génesis WARD, stated patient wanted to BRUSH MATERIAL PREPARER. She no longer wanted to suffer, she was ready to and has been. We agreed making her BRUSH MATERIAL PREPARER here was the best option as her daughter stated to patient she would not take her home. She has been made BRUSH MATERIAL PREPARER placed on morphine drip. Génesis WARD to speak to daughter. Patient is of sound mind and capable of making her own decisions. Exam Narrative Exam Narrative: Patient lying in bed, she appears tired and wore out. She states I want to . She is complaining of pain everywhere. Her abd is distended, she has shoulder pain, muscle pain, lungs are clear no JVD, trace bilateral edema. She has decided to go BRUSH MATERIAL PREPARER. Therefore being placed on morphine drip and being made comfortable. She does not want any further treatment. Objective Last Vital Signs Temp 37.0 C 08/05/20 07:01 Pulse 102 H 08/05/20 07:01 Resp 21 08/05/20 07:01 BP 151/79 H 08/05/20 07:01 Pulse Ox 95 08/05/20 07:01 Laboratory Results - last 24 hr 08/05/20 08/05/20 08/05/20 06:35 06:35 06:35 WBC 8.59 RBC 5.26 H Hgb 16.6 H Hct 48.3 H MCV 91.8 MCH 31.6 MCHC 34.4 RDW 15.5 H Plt Count 143 MPV 9.5 Immature Gran % 2.8 Neutrophils % 81.8 Lymphocytes % 6.8 Monocytes % 7.6 Eosinophils % 0.3 Basophils % 0.7 Nucleated RBC % 0 Absolute Neutrophils 7.03 H Absolute Lymphocytes 0.58 L Absolute Monocytes 0.65 Absolute Eosinophils 0.03 Absolute Basophils 0.06 Sodium 127 L Potassium 4.2 Chloride 96 L Carbon Dioxide 23.7 Anion Gap 7.3 BUN 15 D Creatinine 0.6 Estimated GFR/1.73 m2 >= 60.00 Glucose 153 H Calcium 7.8 L Magnesium 1.6 L
--- NOTE | 2020-08-05 15:49 | CHAPLAIN ---
Carlos met with Palliative Care nurse practitioner, Génesis Alvarez and told Génesis that she was ready to , and in significant pain. Yesterday, when Carlos's daughter was visiting and encouraged her mother to not give up. Carlos has told staff that she hates to disappoint her daughter, but she's made up her mind. Her five years ago. He was a perfect , according to Bladimir and she misses him very much.
--- NOTE | 2020-08-05 18:00 | INDS_ITS ---
Date of service: 08/05/20 PT Notes Visit Reasons: Congestive heart failure Physical Therapy Inpatient Discharge Summary Date: 08/05/2020 Date of service: 08/03/2020 through 08/04/2020 This is a clinical summary of care provided on the duration of dates listed above. No charge was made in the completion of this documentation. Referring Doctor: Shante Mojica NP PT Orders: PT CONSULT: Eval/treat. Precautions: Fall. Standard. Activity as tolerated. Back brace on when out of bed, may put brace in supine or seated. Patient Profile/Admitting Diagnosis: Carlos is an 84-year-old female who presented to the ED on 08/02/2020 due to worsening general fatigue and dyspnea with a fall last . She is diagnosed with pulmonary edema, diabetes mellitus, pneumonia, atrial fibrillation, elevated LFTs, and stable grade 1 superior endplate L1 compression fracture and grade 2 biconcave compression deformity of T12 as well as progressive spondylosis of L5-S1. PMHX: Hypothyroidism Diabetes mellitus type 2 Atrial fibrillation Social History/Home Situation: Lives with a daughter in a private home with 4 steps to enter with rails on B sides. She was independent with meal preparation, all mobility and self-care tasks prior to hospital admission. Daughter drove her to all her medical appointments. Equipment Owned/DME: [facility] Subjective: Carlos has made up her mind about pursuing no mobility goals. She continues to request that she pass and follow her leoved ones who she says have and left her. Objective: General Observation: Comfortably resting in bed. Signs of depression and wanting to pass very evident. Declines all attempts at mobility performance Mental Status: Signs of depression and wanting to pass very evident. Declines all attempts at mobility performance. Does not see the point of continued services. Pain: Comfortably resting in bed. ROM: (As of day of evaluation) Right Upper Extremity: Shoulder Flexion WFL. Shoulder abduction WFL. Shoulder ER/IR WFL. Elbow flexion WFL. Forearm pronation/supination WFL. Wrist flexion WFL. Opening and closing of hand WFL. Left Upper Extremity: Shoulder Flexion WFL. Shoulder abduction WFL. Shoulder ER/IR WFL. Elbow flexion WFL. Forearm pronation/supination WFL. Wrist flexion WFL. Opening and closing of hand WFL. Right Lower Extremity: Hip flexion allows up to about 100 degrees before onset of pain. Hip abduction WFL. Hip ER/IR WFL. Knee flexion 20 degrees to 90 degrees. Knee extension -90 degrees. Ankle dorsiflexion/eversion to neutral only. Ankle plantarflexion/inversion WFL. Left Lower Extremity: Hip flexion allows up to about 100 degrees before onset of pain. Hip abduction WFL. Hip ER/IR WFL. Knee flexion 20 degrees to 90 degrees. Knee extension -90 degrees. Ankle dorsiflexion/eversion to neutral only. Ankle plantarflexion/inversion WFL. Strength: (As of day of evaluation) Right Upper Extremity: Shoulder flexors 3+/5. Shoulder abductors 3+/5. Shoulder ER 3+/5. Shoulder IR 3+/5. Forearm pronators 3+/5. Forearm supinators 3+/5. Elbow flexors 3+/5. Elbow extensors 3+/5. Precast Concrete Ironworker strong. Left Upper Extremity: Shoulder flexors 3+/5. Shoulder abductors 3+/5. Shoulder ER 3+/5. Shoulder IR 3+/5. Forearm pronators 3+/5. Forearm supinators 3+/5. Elbow flexors 3+/5. Elbow extensors 3+/5. Precast Concrete Ironworker strong. Right Lower Extremity: Hip flexors 3-/5. Hip abductors 4-/5. Hip external rotators 4-/5. Hip internal rotators 4-/5. Knee flexors 3-/5. Knee extensors 3- /5. Ankle dorsiflexors/evertors 5/5. Ankle plantarflexors/invertors 5/5. Left Lower Extremity: Hip flexors 5/5. Hip abductors 5/5. Hip external rotators 5/5. HIp internal rotators 5/5. Knee flexors 5/5. Knee extensors 5/5. Ankle dorsiflexors/evertors 5/5. Ankle plantarflexors/invertors 5/5. Bed Mobility/Transfers: As of the past 2 trearment sessions Rolling moderate assist of 2 Supine to sit moderate assist of 2 with HOB at 30 degrees Sit to supine moderate assist of 2 Sit to stand minimal assist of 2 with standby assist of 2 LNAs for safety and environmental set up Stand to sit minimal assist of 2 with standby assist of 2 LNAs for safety and environmental set up Bed to chair minimal assist of 2 with standby assist of 2 LNAs for safety and environmental set up Chair to bed minimal assist of 2 with standby assist of 2 LNAs for safety and environmental set up Gait: Refused to get out of bed. Balance: Static Sitting: Good Dynamic Sitting: Fair Static Standing: Poor Dynamic Standing: Poor Informed Consent/Education: Patient is firm with her decision about palliative care and not pursuing any mobility goals at this time. She requested to be removed from services and to go home. Assessment: Patient refuses further treatments with PT and would like to be comfortable only at this time. Carlos continues to demonstrate difficulty with walking, generalized weakness, significant fearfulness of falling, decline in ADL performance, and significant pain level that limits mobility ADL performance at this time. A TLSO was trialled during this session and patient reported good relief with it on. Patient continues to present with clinical signs and symptoms consistent with current/admitting diagnoses that have resulted to mobility limitations, gait instability, generalized weakness, and impairment of motor control as demonstrated by the following impairment level findings: 1. Decreased strength to B LE major muscle groups 2. Impaired sitting/standing balance 3. Impaired activity tolerance 4. Limitation of joint range of motion in B hips Impairments are continuing to contribute to the following functional limitations: 1. Dependent bed mobility skills 2. Increased dependence with transfers 3. Inability to safely ambulate without assistive device and physical assistance 4. Increase completion time for mobility ADL performance 5. Increased fall risk 6. Inability to negotiate steps alone safely 7. Inability to return to prior living environment at this time Goals: Goals X1 week 1. Supine-Sit independent NOT MET 2. Sit-Supine independent NOT MET 3. Sit-Stand independent with a TLSO on and FWW NOT MET 4. Stand-Sit independent with a TLSO on and FWW NOT MET 5. Bed-Chair independent with a TLSO on and FWW NOT MET 6. Chair-Bed independent with a TLSO on and FWW NOT MET 7. Independent gait on level surface with use of front wheeled walker for at least 100 feet without report of pain nor dyspnea NOT MET 8. Independent stair negotiation while holding onto B rails for at least 4 steps without report of pain nor dyspnea NOT MET 9. Independent with home exercise program NOT MET 10. Good static and dynamic standing balance/tolerance NOT MET DISCHARGE RECOMMENDATIONS: Patient will benefit from detention facility placement for continued skilled physical therapy services in order to progress mobility level, strength, and balance in preparation for a safe discharge to home. TREATMENT CODE/TIME: [place] Thank you for the opportunity to participate in the care of this patient. Fabby Neff PT, DPT, CLT [facility] [place], [place]
--- NOTE | 2020-08-05 19:22 | NUR.NOTE ---
Nursing Note: 1600- patients daughter educated on morphine drip that provider ordered. daughter did not want this for mother, and asked if we could try salt tabs again to see if they will help. patient is showing signs of pain and complained of pain, but daughter was persistent that narcotics will make her loopy and sedated. doesn't think shes ready to . Charge nurse notified, Dr. Flowers notified. Génesis WARD to return and we will follow up with her. 1730- Cascade Operator Génesis Qureshi talked with Génesis Cason NP and she suggested that we talk with the family and directly to patient again. Cascade Operator and GALILEO Tomlinson both educated daughter for the need of morphine and that it will help ease her mothers pain, but then patient agreed to wait two days (what daughter wanted) to see if she gets better. daughter and patient came to agreement that she would try pain meds (non-narcotic) overnight to help with pain. Morphine drip in the [facility] fridge- unable to document not given since it wasn't scheduled. will follow up tomorrow.
[2020-08-05] MEDS: Ketorolac 30 MG/ML VIAL IVP (19:49)
[2020-08-05] MEDS: Lidocaine 5% Patch 1 PATCH TP (19:50)
[2020-08-05] MEDS: LORazepam 2 MG/ML VIAL IV/SC (21:27)
[2020-08-05 21:32] VITALS: RESP 15
[2020-08-06] MEDS: Acetaminophen 500 MG TAB PO (08:09)
[2020-08-06] MEDS: Sucralfate 1 GM TAB PO (08:09)
[2020-08-06] MEDS: Docusate Sodium 100 MG CAP PO (08:09)
[2020-08-06] MEDS: Furosemide 20 MG TAB PO (08:09)
[2020-08-06] MEDS: Lidocaine Patch Removal 1 EACH TD (09:25)
--- NOTE | 2020-08-06 10:46 | PGE_ITS ---
Date of Service Date of service: 08/06/20 Time of Service: 10:46 Assessment and Plan Assessment and plan (1) Comfort measures only status: Start date: 08/06/20 Start time: 10:52 Status: Acute Assessment and plan: Met with palliative care yesterday, she had decided she no longer wanted to live. She has felt this way for a long time. She was in agony with her abdominal pain and multiple other areas of pain. She did not want to eat or drink. She had expressed this to her daughter several times but had not felt heard. 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 It was decided a morphine drip would be best to help her with her agonizing pain. As the nurse went to hang it yesterday her daughter showed up and told the nurse no that her mother does this that she wanted her to live. Both the nurse and optical instrument assembly supervisor tried to explain that it was the patients wishes and we have to honor the patients wishes that the morphine was not going to kill her just ease her pain but the daughter was so insistent that the patient refused the drip. Today daughter asked to speak to this provider, a care team compromised of myself, optical instrument assembly supervisor, CM, pateincoral nurse and Dr Galindo went into patient room and we discussed patients wishes with daughter, she was receptive and asked what to expect, we told her what the expectations were, that she could have boluses if she was in pain and medication for gurgling and anxiety along with breathing. She then asked if she could take her home to . Spoke with MELISSA about taking her home on hospice and she is looking into this. above discussed with Dr. Galindo Subjective Subjective Patient reports: feels better Interval history since last seen: Patient stated she wants to . Stated she feels great even though she has only had toradol. She has had only 200 output urine in the last 12 hours. She is declining rapidly. Likely will not live over the next 24 hours. Exam Narrative Exam Narrative: Patient lying in bed, she appears tired and wore out. sleepy, in and out of sleep. speaking sometimes incoherently but clearly stating she felt comfortable and that she wanted to and that she felt good. the best she has felt yet. Objective Last Vital Signs Temp 37.0 C 08/05/20 07:01 Pulse 102 H 05/28/21 07:01 Resp 15 08/05/20 21:32 BP 151/79 H 08/05/20 07:01 Pulse Ox 95 08/05/20 07:01
--- NOTE | 2020-08-06 13:27 | DSE_ITS ---
Date of service: 08/06/20 Time of Service: 13:27 DS: Diagnosis Discharge Diagnosis (1) Comfort measures only status: Start date: 08/06/20 Start time: 13:27 Status: Acute Asessment and Plan: Initially dx with pneumonia at [facility] discharged home on doxy and admitted for fall, found to be in CHF diuressed with hyponatremia. Over last 2 days patient expressed that she wanted to . She had been expressing this for several days that she wanted to she was ready. Yesterday both myself and Génesis WARD from palliaitive had extensive conversation with her regarding comfort measures, she was very clear that she no longer wanted to live. She was fully AAOx 3 during our conversation and very clear in her wishes. 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 This am she received a dose of toradol. When asked if she wanted anything further she stated no she was comfortable. Her family would like to take her home to at home. She will have home health nursing come in while hospice is being set up. All scripts will be given for comfort. Discharge Plan Disposition Patient Disposition: HOME Condition: Deteriorating Discharge Details Reason For Visit: CHF Admit Date/Time: 08/02/20 13:44 Admit Provider: Arcenio Flowers Attending Provider: Arcenio Flowers Primary Care Provider: Unknown,Unknown Hospital Course Hospital Course: Patient initially admitted after being discharged from [facility] and falling she was found to have pneumonia and placed on doxy. Over course of treatment she was treated for CHF and hyponatremia. Yesterday however patient expressed that she wanted to . She had been expressing this for several days that she wanted to she was ready. Yesterday both myself and Génesis WARD from palliative had extensive conversation with her regarding comfort measures, she was very clear that she no longer wanted to live. She was fully AAOx 3 during our conversation and very clear in her wishes. 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 This am she received a dose of toradol. When asked if she wanted anything further she stated no she was comfortable. Her family would like to take her home to at home. She will have home health nursing come in while hospice is being set up. All scripts will be given for comfort. She will be going via ambulance. Home Meds and New Rx's Prescriptions: New fentanyl 12 mcg/hr patch 72 hour 1 patch transdermal Q72H Qty: 5 RF: 0 tramadol 50 mg Tablet 50 mg PO Q4H PRN PRNQty: 20 RF: 0 scopolamine base 1 mg over 3 days Patch 3 Day 1 mg transdermal Q72H Qty: 3 RF: 0 Refresh Plus 0.5 % Dropperette 1 drp OU PRN PRN (Reason: Dry/itchy eyes) Qty: 30 RF: 0 midazolam (PF) 2 mg/2 mL (1 mg/mL) cartridge 2 mg intranasal ONCE Qty: 2 RF: 2 bisacodyl [Dulcolax (bisacodyl)] 10 mg suppository 10 mg LA DAILY PRNQty: 12 RF: 0 lorazepam [Ativan] 2 mg/mL solution 2 mg LA ONCE Qty: 10 RF: 0 atropine 0.4 mg/mL solution 0.4 mg PO Q30M Qty: 200 RF: 0 morphine 5 mg suppository 5 mg LA Q4H PRNQty: 12 RF: 0 acetaminophen 325 mg suppository 650 mg LA Q4H PRNQty: 50 RF: 0 No Action doxycycline hyclate [Doxy-Caps] 100 mg Capsule 100 mg PO BID RF: 0 metoprolol succinate 50 mg Tablet Extended Release 24 Hr 50 mg PO DAILY RF: 0 Metamucil Packet 1 packet PO BID RF: 0 aspirin [Aspir-Low] 81 mg Tablet,Delayed Release (Dr/Ec) 81 mg PO DAILY RF: 0 acetaminophen 500 mg Tablet 500 mg PO TID PRN PRNRF: 0 diltiazem HCl [DILT-CD] 120 mg Capsule,Extended Release 24hr 120 mg PO DAILY RF: 0 furosemide 20 mg Tablet 20 mg PO DAILY RF: 0 levothyroxine 112 mcg Tablet 112 mcg PO DAILY RF: 0 oxycodone 5 mg Tablet 5 mg PO BID PRNRF: 0 lactulose 10 gram/15 mL Solution 10 g PO BID PRN PRNRF: 0 Eliquis 2.5 mg Tablet 2.5 mg PO BID RF: 0 Discharge Instructions Instructions: Hospice Care (GEN), Comfort Measures (GEN) Additional Instructions: Patient may take lasix for comfort if able to swallow She may eat anything she wants to eat or drink if she is able to swallow I have given several medications to help her through the process for comfort, breathing and gurggling. [place] [facility] [place] they fill most of our hospice patient medications and can answer all questions for you. Feel free to call our care management office if you have any questions or concerns while at home as we can help you navigate through this difficult pr ocess Stand Alone Forms: Nursing Discharge Form Activity:: Activity as Tolerated Equipment/Supplies:: No Equipment Needed Diet:: As Tolerated Discharge Orders Discharge Orders: Discharge Order (Routine); Ordered 08/06/20 Ordered By: Shannon Burleson DS: Summary Time Spent with Patient providing and/or coordinating discharge services: Greater than 30 minutes Status at Discharge Functional status at discharge: bed bound Overall status at discharge: patient is not back to baseline Mental Status: other Speech and Movement: other Mood: other Affect: other Exam Narrative Exam Narrative: Patient lying in bed, she appears tired and wore out. sleepy, in and out of sleep. speaking sometimes incoherently but clearly stating she felt comfortable and that she wanted to and that she felt good. the best she has felt yet. Psych Mental Status: other Speech and Movement: other Mood: other Affect: other DS: Data Vitals/I&O Vitals and I&O: Vital Signs Temperature 37.0 C 08/05/20 07:01 Temperature Source Tympanic 08/05/20 07:01 Pulse 102 H 08/05/20 07:01 Pulse Rhythm Irregular 08/05/20 15:30 Pulse 73 08/02/20 14:09 Respiratory Rate 15 08/05/20 21:32 Respiratory Effort Non-Labored 08/05/20 15:30 Respiratory Depth Normal 08/05/20 15:30 Respiratory Pattern Normal 08/05/20 15:30 Blood Pressure 151/79 H 08/05/20 07:01 Blood Pressure Mean 92 08/02/20 14:09 Blood Pressure Position Supine 08/02/20 12:08 Pulse Oximetry 95 08/05/20 07:01 Oxygen Delivery Method Nasal Cannula 08/05/20 07:01 Oxygen Flow Rate 2 08/05/20 07:01 Pain Level 10 08/05/20 19:49 Comment 08/04/20 10:58 Intake & Output 08/05/20 08/06/2021 23:59 11:59 23:59 Intake Total 122 / 1458.25 200 / 200 Output Total 875 / 1225 225 / 225 Balance -753 / 233.25 - Intake: IV 10 1346.25 Oral 112 / 112 200 / 200 Output: Urine 875 / 1025 225 / 225 Other: Urine Color Straw Dark Vikki Urine Appearance Clear Clear Stool Size Moderate Stool Characteristics Soft Formed Brown Data Completed and Pending Labs on day of discharge: Preliminary micro results at discharge 08/02/20 13:51 Blood Culture - Preliminary Blood NO GROWTH 72 HOURS [facility] Medical History Abdominal pain Ambulatory dysfunction Atrial fibrillation Back pain Compression fracture Congestive heart failure Diabetes mellitus type 2 in obese Hypothyroidism Palliative care patient Pneumonia Pulmonary edema Social History Smoking/Tobacco Use Status: Former Tobacco Use Smoking risk assessment performed?: Yes Alcohol Intake: never Drug use: Never
[2020-08-06] MEDS: traMADol 50 MG TAB PO (14:13)
--- NOTE | 2020-08-06 14:17 | PDOC.HHF2F_ITS ---
Home Health Certification Home Health Certification: 1. Encounter Date and Reason I certify that Carlos Marshall was seen by Shannon Burleson on 08/06/20 and that I had a [id number] encounter with this patient that meets the physician face to face encounter requirements. 2. Clinical Findings Supporting Skilled Need and Homebound Status I certify that home health services are medically necessary, include either intermittent [facility] and/or physical/speech therapy, and that this patient is homebound in that absences from the home require considerable and taxing effort and are infrequent or of short duration, or are attributable to the need to receive medical care. [X] (a) Attached documentation from encounter provides clinical findings supporting skilled need and homebound status (including what assistance patient requires to leave the home). The encounter with the patient was in whole, or in part, for the following medical condition, which is the primary reason for home health care: CHF Custodial: Patient is being discharged home on hospice she is imminent she will need home health nursing to help care for her medication needs. and family support Homebound: Unable to leave home without assistance 3. Certification and Authentication I certify that I composed the above information based on my clinical judgement relating to this patient's medical condition and, if applicable, clinical findings communicated to me by the NPP or inpatient physician who performed the Home Health Referral. All further orders will be obtained through unknown_(Community Based Physician - PCP)
[2020-08-06] MEDS: Scopolamine 1 MG/3 DAYS PATCH TD (14:18)
--- NOTE | 2020-08-06 14:42 | PDOC.CMDIS ---
- If Service Date Differs Date of service: 08/06/20 Time of Service: 14:42 LACE Index Scoring Tool - Questions: Length of Stay (in days): 4 - 6 Acuity (Admit via E.D.?): Yes Comorbidities: Congestive Heart Failure E.D. Visits: 1 - Answers: Total Score: 10 Risk of Readmission: High Risk Care Management Discharge Reason for Hospitalization: CHF, compression fracture Discharge Plan: Carlos is discharged home at the family's request. [facility] will provide Home Care services while transitioning patient to hospice care. Transportation is provided by [facility]. Patient/Family Education Needs: Discharge instructions and expectations. Services Needed at Discharge: Home Health Care Services, Transportation ([facility])
--- NOTE | 2020-08-09 10:25 | OT.INDS ---
Date of service: 08/09/20 Time of Service: 10:26 Occupational Therapy Notes Occupational Therapy Inpatient Discharge Summary Date: 08/09/20 for D/C on 08/05/20 Dates of Service: 08/04/20-08/05/20 Referring Doctor:Shante Mojica NP OT Orders: Non-Urgent Precautions: Fall, standard, DNR/DNI This document serves as a summary of care, no skilled OT services were provided for this documentation PATIENT PROFILE/ADMITTING DIAGNOSIS: Pt is an 84 year old female who was admitted through the ED with a dx of elevated LFTs, DM II, hypothyroidism, compression fx, A-Fib, Hypoxia, pulmonary edema, pneumonia. Past Medical History: Refer to pts EMR Social History/Home Situation: Pt states that she previously lived alone and recently moved in with her daughter. She states that she needs help with her ADLs at times but likes to think that she is fairly (I). Equipment owned/DME: Unable to assess SUBJECTIVE: NT OBJECTIVE: ROM: RUE AROM WFL but limited due to pain L UE AROM WDL but limited due to pain STRENGTH: RUE Unable to test and pt denies LUE Unable to test and pt denies FUNCTIONAL MOBILITY/ADLS: BATHING lying in bed with max (A) Set up/clean up Bathing UE Mod (A) face and (B) UE otherwise max (A) Bathing LE max (A) DRESSING lying in bed Dressing UE Max (A) don and doffing hospital gown Dressing LE Max (A) don and doffing (B) socks GROOMING Mod (A) brushing hair TOILETING [place]ina in place EATING required (A) with opening containers and setting tray BALANCE: NT as pt was lying in bed and refused to move for session. ASSESSMENT: Patient is a 84-year-old female referred to occupational therapy services with diagnosis of elevated LFTs, DM II, hypothyroidism, compression fx, A-Fib, Hypoxia, pulmonary edema, pneumonia. Pt was discharged and transitioned home per her family request. She required mod-max (A) for all ADLs and was unable to perform her ADLs at her baseline level of function. GOALS-Not met 1. Grooming- sitting in chair with max (A) Set up/clean up (I) brushing teeth 2. Dressing- Sitting in chair (I) UE and mod (I) LE 3. Bathing- sitting in chair with max (A) set up/clean up (I) UE 4. Toileting- on commode (I) 5. Eating- sitting in chair (I) PLAN OF CARE/TREATMENT PLAN: Discharge from skilled OT services. DISCHARGE RECOMMENDATIONS Based on pts current level of function OT recommends that pt should go to SNF when medically cleared per MD. TREATMENT TIME/MINUTES/CODES N/A Theresa Quinonez OTR/L [facility]
== END 2020-08-06 14:41 | disposition home or self-care (01) | DRG 291 ==
LOC: ER 13:29 → MS 14:56
PROVIDERS: Nurse Practitioner Acute Care; Admitting Provider Family Medicine; Emergency Provider Emergency Medicine; Visit Provider Family Medicine
DX: I50.1 Left ventricular failure, unspecified (principal); J18.9 Pneumonia, unspecified organism; S22.080A Wedge compression fracture of T11-T12 vertebra, initial encounter for closed fracture; S32.010A Wedge compression fracture of first lumbar vertebra, initial encounter for closed fracture; I48.20 Chronic atrial fibrillation, unspecified; E87.1 Hypo-osmolality and hyponatremia; I08.2 Rheumatic disorders of both aortic and tricuspid valves; I27.20 Pulmonary hypertension, unspecified; E11.9 Type 2 diabetes mellitus without complications; Z79.01 Long term (current) use of anticoagulants; E03.9 Hypothyroidism, unspecified; W19.XXXA Unspecified fall, initial encounter; Z87.891 Personal history of nicotine dependence; Z20.822 Contact with and (suspected) exposure to COVID-19; Z51.5 Encounter for palliative care; R10.9 Unspecified abdominal pain; M54.9 Dorsalgia, unspecified
CPT/HCPCS: 36415; 51702; 80048; 80053; 82805; 84145; 87040; 87635; 93005; 93306; 96365; 96368; 97110; 97162; 97166; 97530; 97535; 99285; 71045; 81003; 81015; 82248; 83735; 83880; 84484; 85025; 85610; 85730; 87086; 93010; 99223; 99233; 99239; 99284; J1885; J1940; J1941; J2060; J2250; J2543; J3475; J3490